=== PATIENT | male | born 1955 | race Caucasian/White ===

== ENCOUNTER 2018-07-19 12:58 | Inpatient (IN) ==
[2018-07-19] MEDS ORDERED: Morphine Inj 4 MG, Morphine Inj 2 MG IV.PUSH ONE ×4 (13:55→17:13)
[2018-07-19] MEDS ORDERED: Sod Chloride 0.9% Inj 1,000 ML IV.SIG SCH (14:00)
--- NOTE | 2018-07-19 14:15 | ED ---
HPI General Chief complaint: Abdominal Pain Stated complaint: abd pain Time Seen by Provider: 07/19/18 13:48 History of Present Illness HPI narrative: Patient is a 62-year-old male with a history of umbilical hernia presents emergency department for evaluation of generalized abdominal pain for the past 3 days. Patient states it started just after Thanksgiving dinner. States he thinks that his umbilical hernia popped. States he has had pain all over and is been gradually worsening in his abdomen since then. He does have history of COPD and smoking as well as history of spinal fusion and a spinal cord stimulator. States the pain is fairly severe, mostly around his bellybutton with some in the right upper quadrant, duration as above, contacts as above. Related Data Home Medications Medication Instructions Recorded Confirmed gabapentin 600 mg PO DAILY 07/19/18 07/19/18 morphine 15 mg PO Q12H 07/19/18 07/19/18 oxycodone-acetaminophen 1 tab PO Q4-6H PRN 07/19/18 07/19/18 pravastatin 20 mg PO DAILY 07/19/18 07/19/18 Allergies Allergy/AdvReac Type Severity Reaction Status Date / Time No Known Allergies Allergy Verified 07/19/18 13:54 Review of Systems ROS: all other systems reviewed are negative [facility] Medical History Medical History COPD (chronic obstructive pulmonary disease) (Acute) Chronic pain (Acute) Fusion of lumbar spine (Acute) Hypercholesteremia (Acute) Social History Social History Substance History: No History of Abuse Smoking Status: Current every day smoker Tobacco Type: Cigarettes How Often Do You Have a Drink Containing Alcohol: Never Recent Travel in [facility] within the Last 8 Weeks: No Recent Out of Country Travel within the Last 8 Weeks: No Exam Narrative Exam Narrative: GENERAL: Well-developed well-nourished obese male appears uncomfortable. SKIN: Focused skin assessment warm/dry. HEAD: Atraumatic. Normocephalic. EYES: Pupils equal and round. No scleral icterus. No injection or drainage. ENT: No nasal bleeding or discharge. Mucous membranes pink and moist. NECK: Trachea midline. No JVD. CARDIOVASCULAR: Regular rate and rhythm. No murmur appreciated. RESPIRATORY: No accessory muscle use. Clear to auscultation. Breath sounds equal bilaterally. GASTROINTESTINAL: Abdomen distended, there are some bowel sounds, is tender throughout the abdomen, there is some peritonitis as well as evidenced by percussion. It seems to be relatively well localized to the right upper quadrant. MUSCULOSKELETAL: No obvious deformities. No clubbing. No cyanosis. No edema. NEUROLOGICAL: Awake and alert. No obvious cranial nerve deficits. Motor grossly within normal limits. Normal speech. PSYCHIATRIC: Appropriate mood and affect; insight and judgment normal. Course Initial Documented Vital Signs Temperature 100.2 F H 07/19/18 13:07 Pulse Rate 118 H 07/19/18 13:07 Respiratory Rate 20 07/19/18 13:07 Blood Pressure 146/67 H 07/19/18 13:07 Pulse Oximetry 89 L 07/19/18 13:07 Last Documented Vital Signs Temperature 100.2 F H 07/19/18 13:07 Pulse Rate 98 H 07/19/18 15:21 Respiratory Rate 16 07/19/18 15:21 Blood Pressure 113/68 07/19/18 15:21 Pulse Oximetry 92 L 07/19/18 15:21 Medical Decision Making MDM Narrative Medical decision making narrative: Patient room to the emergency department, distended tender abdomen, he does have a slight temperature to 100.2, initially tachycardic in the 110's. His mucous membranes appear dry as well, is given 2 L of fluid, lactic acid was negative, white blood cell count elevated to 19,000 with left shift and bandemia of 11%. Patient was taken to CAT scanner which shows what appears to be acute cholecystitis with a 2.5 cm gallbladder neck stone, there is also some distended small bowel loops which either represents adynamic ileus or possibly a small bowel obstruction. Given the cholecystitis would favor an ileus. Still with his distention I think NG decompression would make him feel much more comfortable. It has been ordered. Patient was discussed with Dr. Castro who will see the patient today but probably slight the patient for cholecystectomy on Saturday or Saturday. We have discussed adding Zosyn. Patient will be discussed with Dr. Alvarado for admission. Medical Screen Exam Complete: Yes Emergency Medical Condition: Yes Lab Data Result diagrams: 07/19/18 14:10 07/19/18 14:10 Lab Results 07/19/18 07/19/18 07/19/18 Range/Units 14:10 14:10 14:10 WBC 19.0 H (4.0-11.0) th/mm3 RBC 4.75 (4.50-5.90) mil/mm3 Hgb 16.2 (13.0-17.0) gm/dL Hct 43.6 (39.0-51.0) % MCV 91.9 (80.0-100.0) fL MCH 34.1 H (27.0-34.0) pg MCHC 37.2 H (32.0-36.0) % RDW 12.7 (11.6-17.2) % Plt Count 332 (150-450) th/mm3 MPV 7.8 (7.0-11.0) fL Prelim Diff (Auto) Slide review pending Neut % (Auto) 91.3 H (16.0-70.0) % Lymph % (Auto) 3.2 L (9.0-44.0) % [place] % (Auto) 5.4 (0.0-8.0) % Eos % (Auto) 0.0 (0.0-4.0) % Baso % (Auto) 0.1 (0.0-2.0) % Neut # (Auto) 17.3 H (1.8-7.7) th/mm3 Lymph # (Auto) 0.6 L (1.0-4.8) th/mm3 [place] # (Auto) 1.0 H (0.0-0.9) th/mm3 Eos # (Auto) 0.0 (0.0-0.4) th/mm3 Baso # (Auto) 0.0 (0.0-0.2) th/mm3 WBC Differential Manual diff final Seg Neuts % (Manual) 81 H (16-70) % Band Neuts % (Manual) 11 H (0-6) % Lymphocytes % (Manual) 3 L (9-44) % Monocytes % (Manual) 5 (0-8) % Abs Neuts (Manual) 17.5 H (1.8-7.7) th/mm3 Differential Comment . Platelet Estimate Normal (Normal) Platelet Morphology (Normal) PT 11.3 (9.8-11.6) sec INR 1.1 Ratio APTT 29.6 (23.4-31.7) sec Sodium 134 L (136-145) meq/L Potassium 3.5 (3.5-5.1) meq/L Chloride 101 (98-107) meq/L Carbon Dioxide 23.4 (21.0-32.0) meq/L Anion Gap 10 (5-15) meq/L BUN 12 (7-18) mg/dL Creatinine 0.95 (0.60-1.30) mg/dL Estimated GFR 81 L (>89) mL/min Random Glucose 166 H (74-106) mg/dL Lactic Acid (0.4-2.0) mmol/L Calcium 9.1 (8.5-10.1) mg/dL Magnesium 1.8 (1.5-2.5) mg/dL Total Bilirubin 0.8 (0.2-1.0) mg/dL AST 25 (15-37) U/L ALT 31 (12-78) U/L Alkaline Phosphatase 162 H (45-117) U/L Total Protein 8.3 H (6.4-8.2) g/dL Albumin 3.5 (3.4-5.0) g/dL Lipase 49 L (73-393) U/L 11/24/18 Range/Units 14:10 WBC (4.0-11.0) th/mm3 RBC (4.50-5.90) mil/mm3 Hgb (13.0-17.0) gm/dL Hct (39.0-51.0) % MCV (80.0-100.0) fL MCH (27.0-34.0) pg MCHC (32.0-36.0) % RDW (11.6-17.2) % Plt Count (150-450) th/mm3 MPV (7.0-11.0) fL Prelim Diff (Auto) Neut % (Auto) (16.0-70.0) % Lymph % (Auto) (9.0-44.0) % [place] % (Auto) (0.0-8.0) % Eos % (Auto) (0.0-4.0) % Baso % (Auto) (0.0-2.0) % Neut # (Auto) (1.8-7.7) th/mm3 Lymph # (Auto) (1.0-4.8) th/mm3 [place] # (Auto) (0.0-0.9) th/mm3 Eos # (Auto) (0.0-0.4) th/mm3 Baso # (Auto) (0.0-0.2) th/mm3 WBC Differential Seg Neuts % (Manual) (16-70) % Band Neuts % (Manual) (0-6) % Lymphocytes % (Manual) (9-44) % Monocytes % (Manual) (0-8) % Abs Neuts (Manual) (1.8-7.7) th/mm3 Differential Comment Platelet Estimate (Normal) Platelet Morphology (Normal) PT (9.8-11.6) sec INR Ratio APTT (23.4-31.7) sec Sodium (136-145) meq/L Potassium (3.5-5.1) meq/L Chloride (98-107) meq/L Carbon Dioxide (21.0-32.0) meq/L Anion Gap (5-15) meq/L BUN (7-18) mg/dL Creatinine (0.60-1.30) mg/dL Estimated GFR (>89) mL/min Random Glucose (74-106) mg/dL Lactic Acid 2.0 (0.4-2.0) mmol/L Calcium (8.5-10.1) mg/dL Magnesium (1.5-2.5) mg/dL Total Bilirubin (0.2-1.0) mg/dL AST (15-37) U/L ALT (12-78) U/L Alkaline Phosphatase (45-117) U/L Total Protein (6.4-8.2) g/dL Albumin (3.4-5.0) g/dL Lipase (73-393) U/L Imaging Data Radiologist's impression: Abdomen/Pelvis CT 07/19/18 13:54 CONCLUSION: 1. Findings most consistent with cholelithiasis and acute cholecystitis. 2. 2.1 cm indeterminate density right adrenal mass. Adrenal mass protocol CT or MRI examination may be performed on an outpatient basis for further evaluation. 3. Moderate sigmoid diverticulosis without evidence for diverticulitis. 4. Marginal fluid filled loops of small bowel in the left upper abdomen which may reflect developing adynamic ileus. 5. Additional ancillary findings, as above. Discharge Plan Physicians Team ED Provider: Arnav Dillon Primary Care Provider: Primary Care Yarely Brito Rxs /Orders / Referrals /Forms Prescriptions: No Action gabapentin 600 mg Tablet 600 mg PO DAILY RF: 0 oxycodone-acetaminophen 10-325 mg Tablet 1 tab PO Q4-6H PRN (Reason: Pain) RF: 0 pravastatin 20 mg Tablet 20 mg PO DAILY RF: 0 morphine 15 mg Tablet,Oral Only,Extnd Release 15 mg PO Q12H RF: 0 Status ED Status: Admitted Patient
[2018-07-19 15:15] LABS: Baso % (Auto) 0.1 % (0.0-2.0); Hematocrit 43.6 % (39.0-51.0); Hemoglobin 16.2 gm/dL (13.0-17.0); Lymph # (Auto) 0.6 th/mm3 (1.0-4.8); Lymph % (Auto) 3.2 % (9.0-44.0); Mean Corpuscular Hemoglobin 34.1 pg (27.0-34.0); Mean Corpuscular Volume 91.9 fL (80.0-100.0); Mean Platelet Volume 7.8 fL (7.0-11.0); Mono % (Auto) 5.4 % (0.0-8.0); Neut # (Auto) 17.3 th/mm3 (1.8-7.7); Neut % (Auto) 91.3 % (16.0-70.0); Platelet Count 332 th/mm3 (150-450); Red Blood Count 4.75 mil/mm3 (4.50-5.90); Red Cell Distribution Width 12.7 % (11.6-17.2)
[2018-07-19 15:25] LABS: Mean Corpuscular HGB Conc 37.2 % (32.0-36.0)
[2018-07-19 15:26] LABS: Activated Partial Thrombo Time 29.6 sec (23.4-31.7); INR 1.1 Ratio; Prothrombin Time 11.3 sec (9.8-11.6)
[2018-07-19 15:38] LABS: Alanine Aminotransferase 31 U/L (12-78); Albumin 3.5 g/dL (3.4-5.0); Anion Gap 10 meq/L (5-15); Aspartate Aminotransferase 25 U/L (15-37); Blood Urea Nitrogen 12 mg/dL (7-18); Calcium 9.1 mg/dL (8.5-10.1); Carbon Dioxide 23.4 meq/L (21.0-32.0); Chloride 101 meq/L (98-107); Glomerular Filtration Rate 81 mL/min (>89); Glucose,Random 166 mg/dL (74-106); Lipase 49 U/L (73-393); Magnesium 1.8 mg/dL (1.5-2.5); Potassium 3.5 meq/L (3.5-5.1); Sodium 134 meq/L (136-145)
[2018-07-19 15:41] LABS: Alkaline Phosphatase 162 U/L (45-117); Total Protein 8.3 g/dL (6.4-8.2)
[2018-07-19 16:06] LABS: Lymphocytes 3 % (9-44); Monocytes 5 % (0-8)
[2018-07-19 16:07] LABS: Platelet Estimate Normal (Normal)
--- NOTE | 2018-07-19 16:26 | CT ---
EXAM DATE: 07/19/2018 4:17 PM EST AGE/SEX: 62 years / Male INDICATIONS: Abdominal pain with umbilical hernia. CLINICAL DATA: This is the patient's initial encounter. Patient reports that signs and symptoms have been present for 4 - 6 days and indicates a pain score of 6/10. MEDICAL/SURGICAL HISTORY: . Umbilical hernia. . Lumbar fusion ORAL CONTRAST: No oral contrast ingested. RADIATION DOSE: 16.25 CTDI (mGy) COMPARISON: No prior exams available for comparison. TECHNIQUE: Multiple contiguous axial images were obtained through the abdomen and pelvis following b olus infusion of 96 ml Omnipaque 350 (iohexol) nonionic water-soluble contrast as a single exam dos e. No oral contrast ingested. Using automated exposure control and adjustment of the mA and/or kV ac cording to patient size, radiation dose was kept as low as reasonably achievable to obtain optimal di agnostic quality images. DICOM format image data is available electronically for review and comparis on. FINDINGS: LOWER LUNGS: Bilateral lower lobe airspace consolidation. LIVER: The liver has a homogeneous density without space-occupying lesion. There is no dilation of t he biliary tree. Gallbladder is distended with moderate surrounding stranding and a 2.5 cm stone near the gallbladder neck. There is very trace perihepatic fluid. SPLEEN: Homogeneous density without enlargement. PANCREAS: Unremarkable without mass or calcification. KIDNEYS: Kidneys demonstrate symmetrical enhancement and are symmetrical in size without evidence fo r radiopaque renal calculi or hydronephrosis. ADRENAL GLANDS: 2.1 cm indeterminate density right adrenal mass. AORTA: Jennifer-aneurysmal. BOWEL/MESENTERY: Moderate sigmoid diverticulosis without definitive evidence for diverticulitis. Mar ginal fluid filled loops of small bowel in the left upper abdomen. Moderate stool in the proximal col on. No focal drainable fluid collections. No free air or pneumatosis. ABDOMINAL WALL: Fat-containing periumbilical anterior abdominal wall hernia. RETROPERITONEUM: No evidence of adenopathy in the retrocrural, para-aortic, or deep pelvic regions. BLADDER: Contours are smooth. REPRODUCTIVE: No abnormal masses or calcifications seen. BONY STRUCTURES: Degenerative spondylosis of the lower lumbar spine with posterior transpedicular ro d and screw fixation at L4-S1 and spinal stimulator in place. CONCLUSION: 1. Findings most consistent with cholelithiasis and acute cholecystitis. 2. 2.1 cm indeterminate density right adrenal mass. Adrenal mass protocol CT or MRI examination may be performed on an outpatient basis for further evaluation. 3. Moderate sigmoid diverticulosis without evidence for diverticulitis. 4. Marginal fluid filled loops of small bowel in the left upper abdomen which may reflect developing adynamic ileus. 5. Additional ancillary findings, as above. Electronically signed by: Brad Norton MD 07/19/2018 4:25 PM EST
[2018-07-19] MEDS ORDERED: Piperacil/Tazo 4.5 GM Premix 4.5 GM/100 ML BAG IV.SIG ONE (16:43)
[2018-07-19] MEDS ORDERED: Acetaminophen 325 MG Tablet PO PRN (17:00)
[2018-07-19] MEDS ORDERED: Morphine Inj 4 MG/ML Vial IV.PUSH PRN ×2 (17:01)
--- NOTE | 2018-07-19 17:05 | XR ---
EXAM DATE: 07/19/2018 4:40 PM EST AGE/SEX: 62 years / Male INDICATIONS: Abdominal umbilical hernia. CLINICAL DATA: This is the patient's initial encounter. Patient reports that signs and symptoms have been present for 1 day and indicates a pain score of 0/10. MEDICAL/SURGICAL HISTORY: . Umbilical hernia. Fusion, lumbar. COMPARISON: No prior exams available for comparison. FINDINGS: A single AP view of the chest demonstrates the lungs to be symmetrically aerated without evidence of mass, infiltrate or effusion. The cardiomediastinal contours are unremarkable. Osseous structures a re intact. CONCLUSION: No acute cardiopulmonary disease demonstrated. Electronically signed by: Rito Ferreira MD 07/19/2018 5:04 PM EST
[2018-07-19] MEDS: Sod Chloride 0.9% Inj 1,000 ML IV.CONT SCH (18:04)
--- NOTE | 2018-07-19 18:04 | P.HPIM ---
History of Present Illness Primary Care Physician: No Primary Care Physician History of Present Illness: Mr. Brown is a 62-year-old male. He says 2 nights ago (Thanksgiving dinner) he had an acute onset of right upper quadrant pain. At first the pain was mild in the background but today when he awoke the pain was acute and severe so he had a friend bring him to the emergency department. Imaging shows evidence of cholecystitis. With tachycardia and leukocytosis and cholecystitis the patient meets criteria for sepsis at time of admit. Additionally she has an ileus versus SBO based on imaging. NG tube has been placed prior to my visit with the patient and patient is tolerating this. If this is an ileus etiology could be related to his cholecystitis. No other complaints except abdominal pain at this time. Pain is improved with current pain treatments. Inpatient Certification: I certify that the inpatient services were ordered in accordance with Medicare regulations governing the order. This includes certification that hospital inpatient services are reasonable and necessary and in the case of services not specified as inpatient-only under 42 CFR 419.22(n), that they are appropriately provided as inpatient services in accordance to with the 2-midnight benchmark under 43 CFR 412.3(e) Estimated Total Length of Stay (Days): 5 Plans for Post Hospital Care: SNF Review of Systems Constitutional: No fevers, no chills no night sweats, no fatigue, no weakness Eyes: No eye pain, no blurry vision, no loss of vision ENT: No sore throat, no ear pain, no rhinorrhea Cardiovascular: No chest pain, tachycardia, no palpitations, no syncope Respiratory: No wheezing, no cough, no shortness of breath Gastrointestinal: abdominal pain, no black tarry stools, no bright red blood per rectum, no vomiting, no diarrhea Musculoskeletal: No joint pain, no muscle cramps, no stiffness Integumentary: No rash, no ulcers, no drainage Neurologic: No sensory loss, no loss of motor function, no dizziness Psychiatric: No behavioral changes, no hallucinations, no suicidal ideations PMFSH - History History Provided By: Patient - Medical History Medical History: Medical History (Last Updated 07/19/18 @ 14:32 by Candi Johnson RN) COPD (chronic obstructive pulmonary disease) Chronic pain Fusion of lumbar spine Hypercholesteremia - Family History Family History: Family History (Last Updated 07/19/18 @ 18:01 by Mj Alvarado MD) Other Cholecystitis Cholelithiasis Osteoarthritis - Tobacco History Tobacco Use In Past 30 Days: Yes Smoking Status: Current every day smoker Tobacco Type: Cigarettes - Alcohol History How Often Do You Have a Drink Containing Alcohol: Never - Substance Use History Substance History: No History of Abuse - Travel History Recent Travel in the [place] Within the Last 8 Weeks: No Recent Travel Out of the Country Within the Last 8 Weeks: No - Immunization History Tetanus Immunization: <5 Years Medications and Allergies Active Medications: Active Medications Acetaminophen (Tylenol) 650 mg PO Q4H PRN PRN Reason: Temp > 100.4 Al Hydroxide/Mg Hydroxide (Milk Of Magnaiden Liq) 30 ml PO Q12H PRN PRN Reason: Mild Constipation Sodium Chloride (Ns Inj) 1,000 mls @ 75 mls/hr IV.CONT .[id number] DENILSON Piperacillin/Tazobactam/Dextrose (Zosyn 3.375 Gm Premix) 50 mls @ 100 mls/hr IV.SIG Q8H DENILSON Morphine Sulfate (Morphine Inj) 4 mg IV.PUSH Q4H PRN PRN Reason: Pain 3 to 6 Morphine Sulfate (Morphine Inj) 6 mg IV.PUSH Q4H PRN PRN Reason: Pain 7 to 10 Ondansetron HCl (Zofran Inj) 4 mg IV.PUSH Q6H PRN PRN Reason: NAUSEA OR VOMITING Sodium Chloride (Ns Flush) 2 ml IV.FLUSH PRN PRN PRN Reason: FLUSH AFTER USING IV ACCESS Allergies Allergy/AdvReac Type Severity Reaction Status Date / Time No Known Allergies Allergy Verified 07/19/18 13:54 Home Medications Medication Instructions Recorded Confirmed Type gabapentin 600 mg PO DAILY 07/19/18 07/19/18 History morphine 15 mg PO Q12H 07/19/18 07/19/18 History oxycodone-acetaminophen 1 tab PO Q4-6H PRN 07/19/18 07/19/18 History pravastatin 20 mg PO DAILY 07/19/18 07/19/18 History Exam Vital signs: Vital Signs 07/19/18 13:07 07/19/18 13:55 07/19/18 15:21 Temperature 100.2 F H Pulse Rate 118 H 103 H 98 H Respiratory Rate 20 20 16 Blood Pressure 146/67 H 113/85 113/68 Pulse Oximetry 89 L 92 L 92 L 07/19/18 16:45 Temperature Pulse Rate 104 H Respiratory Rate 22 Blood Pressure 110/65 Pulse Oximetry 91 L Intake & Output 07/18/18 07/19/18 07/19/18 18:59 06:59 18:59 Intake Total 1000 / 1000 Balance 1000 / 1000 Weight 89.811 kg Intake: IV 1000 / 1000 NS Inj 1,000 ML @ 1000 mls/hr 1000 / 1000 IV.SIG BOLUS DENILSON Rx#:[id number] Narrative: GENERAL: NAD, A&Ox3 HEAD: Normocephalic. NECK: Supple, trachea midline. No lymphadenopathy. EYES: No scleral icterus. No injection or drainage. CARDIOVASCULAR: Regular rate and rhythm without murmurs, gallops, or rubs. RESPIRATORY: Breath sounds equal bilaterally. No accessory muscle use. GASTROINTESTINAL: Abdominal tenderness and distention. No significant guarding with palpation. MUSCULOSKELETAL: No cyanosis, or edema. SKIN: Warm and dry. NEURO: No focal neurological deficits. Results - Labs CBC & Chem 7: 07/19/18 14:10 07/19/18 14:10 Labs: Short CBC 07/19/18 Range/Units 14:10 WBC 19.0 H (4.0-11.0) th/mm3 Hgb 16.2 (13.0-17.0) gm/dL Hct 43.6 (39.0-51.0) % Plt Count 332 (150-450) th/mm3 BMP 07/19/18 14:10 Sodium 134 L Potassium 3.5 Chloride 101 Carbon Dioxide 23.4 BUN 12 Creatinine 0.95 Calcium 9.1 Liver Function 07/19/18 Range/Units 14:10 Total Bilirubin 0.8 (0.2-1.0) mg/dL AST 25 (15-37) U/L ALT 31 (12-78) U/L Alkaline Phosphatase 162 H (45-117) U/L Albumin 3.5 (3.4-5.0) g/dL - Imaging Impressions Abdomen/Pelvis CT 07/19/18 13:54 CONCLUSION: 1. Findings most consistent with cholelithiasis and acute cholecystitis. 2. 2.1 cm indeterminate density right adrenal mass. Adrenal mass protocol CT or MRI examination may be performed on an outpatient basis for further evaluation. 3. Moderate sigmoid diverticulosis without evidence for diverticulitis. 4. Marginal fluid filled loops of small bowel in the left upper abdomen which may reflect developing adynamic ileus. 5. Additional ancillary findings, as above. Chest X-Ray 07/19/18 16:12 CONCLUSION: No acute cardiopulmonary disease demonstrated. Caprini VTE Risk Assessment Caprini VTE Risk Assessment: No/Low Risk (score <= 1) Caprini Risk Assessment Model: Point Value = 1 Point Value = 2 Point Value = 3 Point Value = 5 Age 41-60 Minor surgery BMI > 25 kg/m2 Swollen legs Varicose veins or History of unexplained or recurrent spontaneous Oral contraceptives or hormone replacement Sepsis (< 1 month) Serious lung disease, including pneumonia (< 1 month) Abnormal pulmonary function Acute myocardial infarction Congestive heart failure (< 1 month) History of inflammatory bowel disease Medical patient at bed rest Age 61-74 Arthroscopic surgery Major open surgery (> 45 min) Laparoscopic surgery (> 45 min) Malignancy Confined to bed (> 72 hours) Immobilizing plaster cast Central venous access Age >= 75 History of VTE Family history of VTE Factor V Leiden Prothrombin [id number] Lupus anticoagulant Anticardiolipin antibodies Elevated serum homocysteine Heparin-induced thrombocytopenia Other congenital or acquired thrombophilia Stroke (< 1 month) Elective arthroplasty Hip, pelvis, or leg fracture Acute spinal cord injury (< 1 month) Prophylaxis Regimen: Total Risk Factor Score Risk Level Prophylaxis Regimen 0-1 Low Early ambulation 2 Moderate Order ONE of the following: *Sequential Compression Device (SCD) *Heparin 5000 units SQ BID 3-4 Higher Order ONE of the following medications: *Heparin 5000 units SQ TID *Enoxaparin/Lovenox 40 mg SQ daily (WT < 150 kg, CrCl > 30 mL/min) *Enoxaparin/Lovenox 30 mg SQ daily (WT < 150 kg, CrCl > 10-29 mL/min) *Enoxaparin/Lovenox 30 mg SQ BID (WT < 150 kg, CrCl > 30 mL/min) AND/OR *Sequential Compression Device (SCD) 5 or more Highest Order ONE of the following medications: *Heparin 5000 units SQ TID (Preferred with Epidurals) *Enoxaparin/Lovenox 40 mg SQ daily (WT < 150 kg, CrCl > 30 mL/min) *Enoxaparin/Lovenox 30 mg SQ daily (WT < 150 kg, CrCl > 10-29 mL/min) *Enoxaparin/Lovenox 30 mg SQ BID (WT < 150 kg, CrCl > 30 mL/min) AND *Sequential Compression Device (SCD) Assessment and Plan - Plan 62-year-old male admitted secondary to acute cholecystitis with sepsis and ileus Sepsis Acute cholecystitis Ileus N.p.o. IV hydration General surgery consult IV morphine for pain Zosyn Follow clinically for improvement Follow on telemetry Hyperlipidemia Hold chronic treatments given n.p.o. status Follow as an outpatient Chronic back pain N.p.o. for now Continue IV pain treatments COPD No exacerbation Monitor clinically DVT prophylaxis SCDs
--- NOTE | 2018-07-19 18:51 | XR ---
EXAM DATE: 07/19/2018 6:46 PM EST AGE/SEX: 62 years / Male INDICATIONS: NG tube placement. CLINICAL DATA: This is the patient's subsequent encounter. Patient reports that signs and symptoms h ave been present for 1 day and indicates a pain score of 4/10. MEDICAL/SURGICAL HISTORY: . Umbilical hernia. Fusion, lumbar. Stimulator. COMPARISON: No prior exams available for comparison. FINDINGS: A single erect view of the abdomen demonstrates the lower lungs to be clear. No evidence of free intr aperitoneal gas.The visualized bowel loops are unremarkable. Nasogastric tube tip is pointing laterally in the upper stomach. The sidehole is just below the GE ju nction. CONCLUSION: Nasogastric tube tip the upper stomach. Electronically signed by: Rito Ferreira MD 07/19/2018 6:50 PM EST
--- NOTE | 2018-07-19 18:57 | P.CON ---
History of Present Illness Consult date: 07/19/18 Reason for Consult: Acute cholecystitis Primary Care Provider: No Primary Care Physician History of Present Illness: Patient is a 62-year-old male who has approximately a 2-day history of right upper quadrant pain. The pain is become increasingly severe and reports nausea and some emesis today. CT demonstrates a distended gallbladder with a stone in the neck of the gallbladder with a thickened gallbladder wall there is a question of localized ileus as well. Patient has elevated WBCs with left shift and elevated lactate. Liver function tests are within normal limits except for slightly elevated alkaline phosphatase at 162. PMFSH - History History Provided By: Patient - Medical History Medical History: Medical History (Last Updated 07/19/18 @ 14:32 by Candi Johnson RN) COPD (chronic obstructive pulmonary disease) Chronic pain Fusion of lumbar spine Hypercholesteremia - Family History Family History: Family History (Last Updated 07/19/18 @ 18:01 by Mj Alvarado MD) Other Cholecystitis Cholelithiasis Osteoarthritis - Tobacco History Tobacco Use In Past 30 Days: Yes Smoking Status: Current every day smoker Tobacco Type: Cigarettes - Alcohol History How Often Do You Have a Drink Containing Alcohol: Never - Substance Use History Substance History: No History of Abuse - Travel History Recent Travel in the [place] Within the Last 8 Weeks: No Recent Travel Out of the Country Within the Last 8 Weeks: No - Immunization History Tetanus Immunization: <5 Years Medications and Allergies Active Medications: Active Medications Acetaminophen (Tylenol) 650 mg PO Q4H PRN PRN Reason: Temp > 100.4 Al Hydroxide/Mg Hydroxide (Milk Of Magnesia Liq) 30 ml PO Q12H PRN PRN Reason: Mild Constipation Sodium Chloride (Ns Inj) 1,000 mls @ 75 mls/hr IV.CONT .[id number] DENILSON Last Admin: 07/19/18 18:04 Dose: 75 mls/hr Piperacillin/Tazobactam/Dextrose (Zosyn 3.375 Gm Premix) 50 mls @ 100 mls/hr IV.SIG Q8H DENILSON Morphine Sulfate (Morphine Inj) 4 mg IV.PUSH Q4H PRN PRN Reason: Pain 3 to 6 Morphine Sulfate (Morphine Inj) 6 mg IV.PUSH Q4H PRN PRN Reason: Pain 7 to 10 Ondansetron HCl (Zofran Inj) 4 mg IV.PUSH Q6H PRN PRN Reason: NAUSEA OR VOMITING Sodium Chloride (Ns Flush) 2 ml IV.FLUSH PRN PRN PRN Reason: FLUSH AFTER USING IV ACCESS Allergies Allergy/AdvReac Type Severity Reaction Status Date / Time No Known Allergies Allergy Verified 07/19/18 13:54 Home Medications Medication Instructions Recorded Confirmed Type gabapentin 600 mg PO DAILY 07/19/18 07/19/18 History morphine 15 mg PO Q12H 07/19/18 07/19/18 History oxycodone-acetaminophen 1 tab PO Q4-6H PRN 07/19/18 07/19/18 History pravastatin 20 mg PO DAILY 07/19/18 07/19/18 History Physical Exam Vital signs: Vital Signs 07/19/18 13:07 07/19/18 13:55 07/19/18 15:21 Temperature 100.2 F H Pulse Rate 118 H 103 H 98 H Respiratory Rate 20 20 16 Blood Pressure 146/67 H 113/85 113/68 Pulse Oximetry 89 L 92 L 92 L 07/19/18 16:45 Temperature Pulse Rate 104 H Respiratory Rate 22 Blood Pressure 110/65 Pulse Oximetry 91 L Intake & Output 07/18/18 07/19/18 07/19/18 18:59 06:59 18:59 Intake Total 1100 / 1100 Balance 1100 / 1100 Weight 89.811 kg Intake: IV 1100 / 1100 Zosyn 4.5 GM Premix 4.5 gm In 100 / 100 100 ml @ 200 mls/hr IV.SIG ONCE ONE Rx#:[id number] NS Inj 1,000 ML @ 1000 mls/hr 1000 / 1000 IV.SIG BOLUS DENILSON Rx#:[id number] - Constitutional moderate distress - Routine HEENT Exam Head: Present: normocephalic - Routine Neck Exam Present: supple - Routine Respiratory Exam Present: decreased breath sounds - Routine Cardiovascular Exam Present: RRR - Routine Abdominal Exam Present: soft, tenderness (Right upper quadrant and epigastrium), guarding - Detailed Neurological Exam: Coma Scale Verbal Response: Oriented Motor Response: Obey commands - Routine Psychiatric Exam Present: normal affect, good insight Results - Labs CBC & Chem 7: 07/19/18 14:10 07/19/18 14:10 Labs: Laboratory Results - last 24 hr 07/19/18 07/19/18 07/19/18 14:10 14:10 14:10 WBC 19.0 H RBC 4.75 Hgb 16.2 Hct 43.6 MCV 91.9 MCH 34.1 H MCHC 37.2 H RDW 12.7 Plt Count 332 MPV 7.8 Prelim Diff (Auto) Slide review pending Neut % (Auto) 91.3 H Lymph % (Auto) 3.2 L [place] % (Auto) 5.4 Eos % (Auto) 0.0 Baso % (Auto) 0.1 Neut # (Auto) 17.3 H Lymph # (Auto) 0.6 L [place] # (Auto) 1.0 H Eos # (Auto) 0.0 Baso # (Auto) 0.0 WBC Differential Manual diff final Seg Neuts % (Manual) 81 H Band Neuts % (Manual) 11 H Lymphocytes % (Manual) 3 L Monocytes % (Manual) 5 Abs Neuts (Manual) 17.5 H Differential Comment . Platelet Estimate Normal Platelet Morphology PT 11.3 INR 1.1 APTT 29.6 Sodium 134 L Potassium 3.5 Chloride 101 Carbon Dioxide 23.4 Anion Gap 10 BUN 12 Creatinine 0.95 Estimated GFR 81 L Random Glucose 166 H Lactic Acid Calcium 9.1 Magnesium 1.8 Total Bilirubin 0.8 AST 25 ALT 31 Alkaline Phosphatase 162 H Total Protein 8.3 H Albumin 3.5 Lipase 49 L 07/19/18 14:10 WBC RBC Hgb Hct MCV MCH MCHC RDW Plt Count MPV Prelim Diff (Auto) Neut % (Auto) Lymph % (Auto) [place] % (Auto) Eos % (Auto) Baso % (Auto) Neut # (Auto) Lymph # (Auto) [place] # (Auto) Eos # (Auto) Baso # (Auto) WBC Differential Seg Neuts % (Manual) Band Neuts % (Manual) Lymphocytes % (Manual) Monocytes % (Manual) Abs Neuts (Manual) Differential Comment Platelet Estimate Platelet Morphology PT INR APTT Sodium Potassium Chloride Carbon Dioxide Anion Gap BUN Creatinine Estimated GFR Random Glucose Lactic Acid 2.0 Calcium Magnesium Total Bilirubin AST ALT Alkaline Phosphatase Total Protein Albumin Lipase - Imaging Impressions Abdomen/Pelvis CT 07/19/18 13:54 CONCLUSION: 1. Findings most consistent with cholelithiasis and acute cholecystitis. 2. 2.1 cm indeterminate density right adrenal mass. Adrenal mass protocol CT or MRI examination may be performed on an outpatient basis for further evaluation. 3. Moderate sigmoid diverticulosis without evidence for diverticulitis. 4. Marginal fluid filled loops of small bowel in the left upper abdomen which may reflect developing adynamic ileus. 5. Additional ancillary findings, as above. Chest X-Ray 07/19/18 16:12 CONCLUSION: No acute cardiopulmonary disease demonstrated. Assessment and Plan - Assessment (1) Acute cholecystitis due to biliary calculus Code(s): K80.00 - Calculus of gallbladder with acute cholecystitis without obstruction Status: Acute Plan: Patient needs resuscitation and antibiotics. He also needs optimization of his pulmonary status as he is a smoker and has COPD. Also he has chronic narcotic use for chronic back pain. He will be extremely problematic in terms of managing his postoperative pain. 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 I have discussed risks of the procedure with him preliminarily including but not limited to: bleeding, infection, increased risk for pneumonia, bile duct injury , bowel injury, possible need for ERCP. I have also discussed with him that I will primarily repair his umbilical hernia but that it has a high failure rate due to his other comorbid conditions. I will not place mesh when it is repaired at the time of gallbladder surgery. I will attempt to proceed with surgery on Saturday or Saturday morning. This is in the next 48-72 hours. - Plan Discussed Condition With: Patient ER physician Dr. Dillon - Attending Attestation I attest that I had a [id number] encounter with the patient on the same day, and personally performed and documented my assessment and findings in the medical record. The following services were provided during this hospital visit: Chart data review, vital sign assessments/reviewing monitor data Review of consultation notes if present Medication orders/review and/or management Ordering and/or reviewing lab tests Ordering and/or interpreting/reviewing x-rays and/or diagnostic studies Care of the patient and discussion of the patient with the care team Documentation time To help prompt me to consider important information that might be impacting today's encounter and assessment, Information from prior notes written by myself or my colleagues may have been "brought forward/copy and pasted" into today's note.
[2018-07-20] MEDS: Morphine Inj 4 MG/ML Vial IV.PUSH PRN ×7 (00:15→21:53)
[2018-07-20] MEDS: Piperacil/Tazo 3.375 GM Premix 50 ML IV.SIG SCH ×3 (00:18→16:15)
[2018-07-20] MEDS ORDERED: Piperacil/Tazo 3.375 GM Premix 50 ML IV.SIG SCH (01:00)
[2018-07-20] MEDS ORDERED: Morphine Sulfate Inj 2 MG/ML Vial IV.PUSH ONE (01:48)
[2018-07-20 07:01] LABS: Baso % (Auto) 0.2 % (0.0-2.0); Hematocrit 41.3 % (39.0-51.0); Hemoglobin 14.2 gm/dL (13.0-17.0); Lymph # (Auto) 1.4 th/mm3 (1.0-4.8); Mean Corpuscular HGB Conc 34.3 % (32.0-36.0); Mean Corpuscular Hemoglobin 31.9 pg (27.0-34.0); Mean Corpuscular Volume 92.8 fL (80.0-100.0); Mean Platelet Volume 7.5 fL (7.0-11.0); Mono # (Auto) 1.3 th/mm3 (0.0-0.9); Mono % (Auto) 8.6 % (0.0-8.0); Neut # (Auto) 12.4 th/mm3 (1.8-7.7); Neut % (Auto) 82.2 % (16.0-70.0); Platelet Count 314 th/mm3 (150-450); Red Blood Count 4.45 mil/mm3 (4.50-5.90); Red Cell Distribution Width 13.1 % (11.6-17.2)
[2018-07-20 07:26] LABS: Alanine Aminotransferase 25 U/L (12-78); Albumin 2.7 g/dL (3.4-5.0); Alkaline Phosphatase 119 U/L (45-117); Anion Gap 7 meq/L (5-15); Aspartate Aminotransferase 16 U/L (15-37); Blood Urea Nitrogen 17 mg/dL (7-18); Calcium 8.6 mg/dL (8.5-10.1); Chloride 106 meq/L (98-107); Glomerular Filtration Rate Greater Than 89 mL/min (>89); Glucose,Random 118 mg/dL (74-106); Potassium 3.8 meq/L (3.5-5.1); Sodium 140 meq/L (136-145); Total Protein 7.1 g/dL (6.4-8.2)
[2018-07-20] MEDS: Sod Chloride 0.9% Inj 1,000 ML IV.CONT SCH ×2 (08:18→21:51)
--- NOTE | 2018-07-20 11:08 | P.PN ---
Subjective Interval history: Follow-up sepsis/cholecystitis/ileus July 20, 2018-patient seen and examined, currently n.p.o. with increase NG tube output. Abdominal tenderness otherwise no chest pain or shortness of breath. Afebrile. Physical Exam Vital signs: Vital Signs 07/19/18 13:07 07/19/18 13:55 07/19/18 15:21 Temperature 100.2 F H Pulse Rate 118 H 103 H 98 H Respiratory Rate 20 20 16 Blood Pressure 146/67 H 113/85 113/68 Pulse Oximetry 89 L 92 L 92 L 07/19/18 16:45 07/19/18 19:00 07/19/18 19:10 Temperature 98.7 F Pulse Rate 104 H 100 H 100 H Respiratory Rate 22 20 Blood Pressure 110/65 103/36 L Pulse Oximetry 91 L 92 L 07/19/18 20:00 07/19/18 21:00 07/19/18 22:00 Temperature Pulse Rate 94 H 94 H 88 Respiratory Rate Blood Pressure Pulse Oximetry 07/19/18 23:00 07/20/18 00:00 07/20/18 01:00 Temperature 98.4 F Pulse Rate 86 94 H 94 H Respiratory Rate 20 Blood Pressure 130/79 Pulse Oximetry 92 L 07/20/18 01:57 07/20/18 02:00 07/20/18 03:53 Temperature Pulse Rate 81 Respiratory Rate 22 22 Blood Pressure Pulse Oximetry 07/20/18 04:00 07/20/18 08:00 Temperature 98.6 F 98.9 F Pulse Rate 91 H 100 H Respiratory Rate 20 22 Blood Pressure 127/82 143/84 H Pulse Oximetry 94 L 94 L Intake & Output 07/19/18 07/20/18 07/20/18 18:59 06:59 18:59 Intake Total 1100 / 1100 50 / 50 1000 / 1000 Output Total 950 / 950 Balance 1100 / 1100 -900 / -900 1000 / 1000 Weight 89.811 kg 86.7 kg Intake: IV 1100 / 1100 50 / 50 1000 / 1000 NS Inj 1,000 ML @ 75 mls/hr IV. 1000 / 1000 CONT .[id number] DENILSON Rx#:[id number] Zosyn 3.375 GM Premix 50 ML @ 50 / 50 100 mls/hr IV.SIG Q8H DENILSON Rx#: [id number] Zosyn 4.5 GM Premix 4.5 gm In 100 / 100 100 ml @ 200 mls/hr IV.SIG ONCE ONE Rx#:[id number] NS Inj 1,000 ML @ 1000 mls/hr 1000 / 1000 IV.SIG BOLUS DENILSON Rx#:[id number] Oral 0 / 0 Output: Urine 400 / 400 Gastric Drainage 550 / 550 Right Nare Nasogastric Tube 550 / 550 Other: Date of Last Bowel Movement 07/17/18 Narrative: GENERAL: NAD with NGT in place SKIN: Warm and dry. HEAD: Normocephalic. EYES: No scleral icterus. No injection or drainage. NECK: Supple, trachea midline. No JVD or lymphadenopathy. CARDIOVASCULAR: Regular rate and rhythm without murmurs, gallops, or rubs. RESPIRATORY: Breath sounds equal bilaterally. No accessory muscle use. GASTROINTESTINAL: Abdomen soft, mildly tender, nondistended. hypoactive BS. Umbilical hernia MUSCULOSKELETAL: No cyanosis, or edema. BACK: Nontender without obvious deformity. No CVA tenderness. Results - Labs CBC & Chem 7: 07/20/18 06:25 07/20/18 06:25 Laboratory Results - last 24 hr 07/19/18 07/19/18 07/19/18 14:10 14:10 14:10 WBC 19.0 H RBC 4.75 Hgb 16.2 Hct 43.6 MCV 91.9 MCH 34.1 H MCHC 37.2 H RDW 12.7 Plt Count 332 MPV 7.8 Prelim Diff (Auto) Slide review pending Neut % (Auto) 91.3 H Lymph % (Auto) 3.2 L [place] % (Auto) 5.4 Eos % (Auto) 0.0 Baso % (Auto) 0.1 Neut # (Auto) 17.3 H Lymph # (Auto) 0.6 L [place] # (Auto) 1.0 H Eos # (Auto) 0.0 Baso # (Auto) 0.0 WBC Differential Manual diff final Seg Neuts % (Manual) 81 H Band Neuts % (Manual) 11 H Lymphocytes % (Manual) 3 L Monocytes % (Manual) 5 Abs Neuts (Manual) 17.5 H Differential Comment . Platelet Estimate Normal Platelet Morphology PT 11.3 INR 1.1 APTT 29.6 Sodium 134 L Potassium 3.5 Chloride 101 Carbon Dioxide 23.4 Anion Gap 10 BUN 12 Creatinine 0.95 Estimated GFR 81 L Random Glucose 166 H Lactic Acid Calcium 9.1 Magnesium 1.8 Total Bilirubin 0.8 AST 25 ALT 31 Alkaline Phosphatase 162 H Total Protein 8.3 H Albumin 3.5 Lipase 49 L 07/19/18 07/20/18 07/20/18 14:10 06:25 06:25 WBC 15.0 H RBC 4.45 L Hgb 14.2 D Hct 41.3 MCV 92.8 MCH 31.9 MCHC 34.3 RDW 13.1 Plt Count 314 MPV 7.5 Prelim Diff (Auto) Neut % (Auto) 82.2 H Lymph % (Auto) 9.0 [place] % (Auto) 8.6 H Eos % (Auto) 0.0 Baso % (Auto) 0.2 Neut # (Auto) 12.4 H Lymph # (Auto) 1.4 [place] # (Auto) 1.3 H Eos # (Auto) 0.0 Baso # (Auto) 0.0 WBC Differential . Seg Neuts % (Manual) Band Neuts % (Manual) Lymphocytes % (Manual) Monocytes % (Manual) Abs Neuts (Manual) Differential Comment Auto diff final Platelet Estimate Platelet Morphology PT INR APTT Sodium 140 Potassium 3.8 Chloride 106 Carbon Dioxide 27.0 Anion Gap 7 BUN 17 Creatinine 0.79 Estimated GFR Greater than 89 Random Glucose 118 H Lactic Acid 2.0 Calcium 8.6 Magnesium Total Bilirubin 0.4 AST 16 ALT 25 Alkaline Phosphatase 119 H Total Protein 7.1 D Albumin 2.7 L D Lipase - Imaging Impressions Abdomen/Pelvis CT 07/19/18 13:54 CONCLUSION: 1. Findings most consistent with cholelithiasis and acute cholecystitis. 2. 2.1 cm indeterminate density right adrenal mass. Adrenal mass protocol CT or MRI examination may be performed on an outpatient basis for further evaluation. 3. Moderate sigmoid diverticulosis without evidence for diverticulitis. 4. Marginal fluid filled loops of small bowel in the left upper abdomen which may reflect developing adynamic ileus. 5. Additional ancillary findings, as above. Chest X-Ray 07/19/18 16:12 CONCLUSION: No acute cardiopulmonary disease demonstrated. Abdomen X-Ray 07/19/18 17:13 CONCLUSION: Nasogastric tube tip the upper stomach. Assessment and Plan - Plan 62-year-old man with Sepsis: Secondary to acute cholecystitis Currently on Zosyn pending culture report Acute cholecystitis CT abdomen noted and reviewed with finding noted Appreciate input from general surgery who plan for lap cholecystectomy possible July 21 or Continue with IV Zosyn Adynamic ileus Continue of NG tube, n.p.o., IV fluid hydration Management per general surgery Check Flat and upright in AM 07/21 Umbilical hernia Likely repair next week by general surgery on July 21 or Chronic pain syndrome Continue with current pain management and resume outpatient meds when able to tolerate PO Patient to follow outpatient with pain specialist Hyperlipidemia Resume outpatient medication when able to tolerate p.o. Tobacco abuse Tobacco counseling cessation provided Tx with Nicotine patch DVT prophylaxis: Bilateral SCDs
[2018-07-20 11:34] LABS: Bacteria,Urine Moderate /hpf; Bilirubin,Urine Negative (Negative); Clarity,Urine Hazy (Clear); Color,Urine Yellow (Yellw/Straw); Glucose,Urine (UA) Negative (Negative); Leukocyte Esterase,Urine Negative (Negative); Mucus,Urine Few /lpf (Occasional); Nitrite,Urine Negative (Negative); Squamous Epithelial Cell,Urine <1 /hpf (0-5)
--- NOTE | 2018-07-20 13:46 | ECG ---
Date Performed: 07/19/2018 Time Performed: 16:51:29 PTAGE: 62 years EKG: Sinus rhythm NORMAL ECG NO PREVIOUS TRACING DOCTOR: Nick Cox Interpretating Date/Time 07/20/2018 13:44:14
[2018-07-20] MEDS: Morphine Sulfate 15 MG SR Tablet PO SCH (15:49)
[2018-07-21] MEDS: Piperacil/Tazo 3.375 GM Premix 50 ML IV.SIG SCH ×4 (01:30→19:18)
[2018-07-21] MEDS ORDERED: Metoprolol Inj 5 MG/5 ML Vial IV.PUSH ONE (03:18)
[2018-07-21] MEDS: Morphine Sulfate 15 MG SR Tablet PO SCH ×2 (04:42→19:19)
[2018-07-21] MEDS: Metoprolol Inj 5 MG/5 ML Vial IV.PUSH PRN ×3 (04:42→05:04)
[2018-07-21 05:43] LABS: Baso % (Auto) 0.1 % (0.0-2.0); Eos # (Auto) 0.1 th/mm3 (0.0-0.4); Eos % (Auto) 0.4 % (0.0-4.0); Hematocrit 40.6 % (39.0-51.0); Hemoglobin 14.2 gm/dL (13.0-17.0); Lymph % (Auto) 5.8 % (9.0-44.0); Mean Corpuscular HGB Conc 34.9 % (32.0-36.0); Mean Corpuscular Hemoglobin 32.1 pg (27.0-34.0); Mean Corpuscular Volume 91.9 fL (80.0-100.0); Mean Platelet Volume 7.6 fL (7.0-11.0); Mono # (Auto) 1.7 th/mm3 (0.0-0.9); Mono % (Auto) 9.7 % (0.0-8.0); Neut # (Auto) 14.8 th/mm3 (1.8-7.7); Platelet Count 340 th/mm3 (150-450); Red Blood Count 4.42 mil/mm3 (4.50-5.90); White Blood Count 17.6 th/mm3 (4.0-11.0)
[2018-07-21 05:56] LABS: Alanine Aminotransferase 33 U/L (12-78); Albumin 2.5 g/dL (3.4-5.0); Anion Gap 6 meq/L (5-15); Aspartate Aminotransferase 28 U/L (15-37); Blood Urea Nitrogen 21 mg/dL (7-18); Calcium 8.8 mg/dL (8.5-10.1); Carbon Dioxide 27.5 meq/L (21.0-32.0); Chloride 108 meq/L (98-107); Glomerular Filtration Rate Greater Than 89 mL/min (>89); Glucose,Random 122 mg/dL (74-106); Potassium 3.8 meq/L (3.5-5.1); Sodium 141 meq/L (136-145)
[2018-07-21 05:58] LABS: Alkaline Phosphatase 114 U/L (45-117); Total Protein 7.1 g/dL (6.4-8.2)
[2018-07-21] MEDS: Morphine Inj 4 MG/ML Vial IV.PUSH PRN (06:51)
[2018-07-21] MEDS ORDERED: Lidocaine 1%/Epinephrine 1:100,000 Inj 30 ML Vial ONE (09:39)
[2018-07-21] MEDS ORDERED: Bupivacaine/Epinephrine Inj 0.25% 50 ML Vial ONE (09:39)
[2018-07-21] MEDS ORDERED: Chlorhexidine Gluconate 2% 1 Pack (2 Cloths) TOPICAL ONE (10:25)
[2018-07-21] MEDS ORDERED: Metoprolol Tartrate 25 MG Tablet PO ONE (10:25)
[2018-07-21] MEDS ORDERED: Phenylephrine/NS 1000 MCG/10ML Syringe IV.PUSH ONE (10:40)
[2018-07-21] MEDS ORDERED: Glycopyrrolate Inj 1 MG/5 ML Syringe IV.PUSH ONE (10:40)
[2018-07-21] MEDS ORDERED: HYDROmorphone PF Inj 2 MG/ML Vial ONE (10:40)
[2018-07-21] MEDS ORDERED: Neostigmine Inj 5 MG/5 ML Syringe IV.PUSH ONE (10:40)
[2018-07-21] MEDS ORDERED: Esmolol Bolus Inj 100 MG/10 ML Vial IV.PUSH ONE (10:40)
[2018-07-21] MEDS ORDERED: Lidocaine PF 1% Inj 5 ML Syringe OTHER ONE (10:40)
[2018-07-21] MEDS ORDERED: Normosol-R pH 7.4 Inj 2,000 ML IV.CONT ONE (10:40)
[2018-07-21] MEDS ORDERED: Sodium Chlor 0.9% Inj 500 ML IV.SIG ONE (11:00)
--- NOTE | 2018-07-21 13:09 | P.OP ---
- Preoperative Diagnosis (1) Acute cholecystitis due to biliary calculus - Postoperative Diagnosis (1) Acute cholecystitis due to biliary calculus Date of procedure: 07/21/18 Procedure: Laparoscopic cholecystectomy Primary repair of umbilical hernia Anesthesia: VIDHYA Surgeon: Reji Castro MD Cardiology Clinical Nurse Specialist: Arnav Liriano CFA Estimated blood loss (mL): 700 IV fluids (mL): 3,700 Pathology: other (Gallbladder and contents to pathology) Operation and Findings: Gallbladder with acute, necrotizing, gangrenous cholecystitis. Patient was taken to the operating room and placed on the operating table in the supine position. After an adequate level of general endotracheal anesthesia was achieved the abdomen was prepped and draped in the usual fashion. Time-out was taken, confirming the correct patient, site, and procedure to be performed. Skin and subcutaneous tissue was infiltrated with local anesthetic and an incision made in the umbilicus and carried through the fascia sharply. The preperitoneal fatty tissue, which comprised and umbilical hernia, was reduced into the abdominal cavity and a 12 mm balloon trocar was inserted and the balloon inflated. The abdomen was insufflated. The patient was placed in reverse Trendelenburg position. Three 5 mm trocars were then placed, with the first to the right of the falciform ligament and second and third in the right subcostal region. All entered the abdominal cavity under direct vision uneventfully. The patient had omentum and colon adhered to the anterior abdominal wall. This was taken down easily with gentle blunt dissection. Following this, the omentum was taken off of the gallbladder wall which was intensely inflamed. The gallbladder was punctured with an aspirating needle and approximately 80 mls of brownish bile was removed. This allowed for the gallbladder to be grasped and retracted upward. The cystic duct-infundibular junction was eventually located but was in extremely severe inflammatory tissue. The cystic artery was identified but was quite small and with all of the inflammatory tissue a single clip was placed to control it. This was divided. Due to the very intense inflammation and inflammatory process, it was elected to proceed with a dome down approach for the dissection of the gallbladder off of the liver bed. This was accomplished with a combination of gentle blunt dissection and electrocautery. The gallbladder was dissected down to beyond the infundibulum and a 0 PDS Endoloop was then slipped over the gallbladder and cinched down at the cystic duct. The gallbladder was then sharply divided approximately 1 cm proximal to the suture. The gallbladder was placed into an Endo Catch device and removed via the umbilical port while observing via the 5 mm upper abdominal trocar. The specimen was passed off the table. The upper abdomen was re-visualized and the liver bed was seen to be hemostatic. Two small oozing points were controlled with electrocautery. The cystic artery stump and cystic duct stump were seen to be clean and dry. One small portion of inflammatory tissue had a persistent ooze which was easily controlled with minimal use of electrocautery. When this was completed, due to the extremely large area of raw surface, a ALBINA drain was brought in via the the upper 5 mm trocar and out via the lateral 5 mm trocar site. The drain was secured with a 3-0 nylon suture. Insufflation was discontinued and the remaining 5 mm trocar was removed. No bleeding was noted from the trocar sites during desufflation. The laparoscope and umbilical port were then removed. The fascia was closed in the umbilicus with #1 Prolene suture in a simple interrupted fashion. The remaining local anesthetic was injected into the trocar sites. The skin was closed at the 2 upper more medial 5 mm trocar sites and in the umbilicus with 4-0 Vicryl in an interrupted buried fashion. The 5 mm trocar sites were dressed with Steri-Strips. The drain site was dressed with a 4 x 4. The umbilicus was dressed with a 4 x 4 and Tegaderm. The patient was extubated and taken back to the recovery room in stable condition. Sponge and needle counts were reported to be correct.
[2018-07-21] MEDS ORDERED: fentaNYL Citrate Inj 100 MCG/2 ML Ampul ONE (13:13)
[2018-07-21 13:32] LABS: Baso % (Auto) 0.2 % (0.0-2.0); Eos % (Auto) 0.2 % (0.0-4.0); Hematocrit 43.7 % (39.0-51.0); Hemoglobin 14.3 gm/dL (13.0-17.0); Lymph # (Auto) 2.4 th/mm3 (1.0-4.8); Lymph % (Auto) 11.3 % (9.0-44.0); Mean Corpuscular HGB Conc 32.8 % (32.0-36.0); Mean Corpuscular Hemoglobin 31.5 pg (27.0-34.0); Mean Corpuscular Volume 95.9 fL (80.0-100.0); Mean Platelet Volume 7.8 fL (7.0-11.0); Mono # (Auto) 1.3 th/mm3 (0.0-0.9); Mono % (Auto) 5.9 % (0.0-8.0); Neut # (Auto) 17.5 th/mm3 (1.8-7.7); Neut % (Auto) 82.4 % (16.0-70.0); Platelet Count 351 th/mm3 (150-450); Red Blood Count 4.56 mil/mm3 (4.50-5.90); Red Cell Distribution Width 13.4 % (11.6-17.2); White Blood Count 21.2 th/mm3 (4.0-11.0)
[2018-07-21] MEDS ORDERED: *morphine SULFATE 4 MG/ML PERIprocedure ONLY ONE ×2 (13:34→19:29)
[2018-07-21] MEDS ORDERED: niCARdipine Inj 25 MG/10 ML Vial ONE (13:54)
[2018-07-21] MEDS ORDERED: dilTIAZem Inj 125 MG in Sodium Chlor 0.9% Inj 100 ML IV.CONT PRN (14:20)
[2018-07-21] MEDS ORDERED: Mag Sulf 1 gm/100 ml Premix 200 ML IV.SIG ONE (14:20)
[2018-07-21] MEDS ORDERED: Adenosine Inj 6 MG/2 ML Syringe IV.PUSH ONE ×2 (14:54→15:00)
--- NOTE | 2018-07-21 15:20 | P.PN ---
Subjective Interval history: Follow-up sepsis/cholecystitis/ileus July 20, 2018-patient seen and examined, currently n.p.o. with increase NG tube output. Abdominal tenderness otherwise no chest pain or shortness of breath. Afebrile. July 21, 2018-patient seen and examined in PACU, he is postop lap cholecystectomy complicated by A. fib with RVR for which cardiology was consulted. Case discussed with Dr. Bowman Physical Exam Vital signs: Vital Signs 07/20/18 16:00 07/20/18 18:00 07/20/18 19:00 Temperature 98.6 F Pulse Rate 110 H 100 H Respiratory Rate 20 22 Blood Pressure 143/93 H Pulse Oximetry 93 L 07/20/18 20:00 07/20/18 21:00 07/20/18 22:00 Temperature 98.7 F Pulse Rate 102 H 102 H 94 H Respiratory Rate 20 Blood Pressure 148/81 H Pulse Oximetry 94 L 07/20/18 23:00 07/20/18 23:39 07/21/18 00:00 Temperature Pulse Rate 104 H 96 H 88 Respiratory Rate 20 Blood Pressure 136/84 Pulse Oximetry 95 07/21/18 01:00 07/21/18 02:00 07/21/18 03:00 Temperature Pulse Rate 88 98 H 151 H Respiratory Rate Blood Pressure Pulse Oximetry 07/21/18 04:00 07/21/18 04:49 07/21/18 04:50 Temperature 98.2 F Pulse Rate 134 H 132 H 131 H Respiratory Rate 20 Blood Pressure 123/78 110/83 103/83 Pulse Oximetry 94 L 07/21/18 04:51 07/21/18 04:54 07/21/18 04:57 Temperature Pulse Rate 130 H 130 H 130 H Respiratory Rate Blood Pressure 111/86 108/92 H 95/75 L Pulse Oximetry 07/21/18 05:00 07/21/18 05:03 07/21/18 05:06 Temperature Pulse Rate 130 H 128 H 127 H Respiratory Rate Blood Pressure 105/81 111/74 97/79 L Pulse Oximetry 07/21/18 05:09 07/21/18 05:12 07/21/18 06:00 Temperature Pulse Rate 127 H 126 H 130 H Respiratory Rate Blood Pressure 114/77 109/71 Pulse Oximetry 07/21/18 07:00 07/21/18 08:00 Temperature 97.9 F Pulse Rate 136 H 132 H Respiratory Rate 18 Blood Pressure 132/78 Pulse Oximetry 94 L Intake & Output 07/20/18 07/21/18 07/21/18 18:59 06:59 18:59 Intake Total 1100 / 1100 1050 / 1050 3750 / 3750 Output Total 1035 / 1035 900 / 900 700 / 700 Balance 65 / 65 150 / 150 3050 / 3050 Weight 84.3 kg Intake: IV 1100 / 1100 1050 / 1050 50 / 50 NS Inj 1,000 ML @ 75 mls/hr IV. 1000 / 1000 1000 / 1000 CONT .[id number] DENILSON Rx#:[id number] Zosyn 3.375 GM Premix 50 ML @ 100 / 100 50 / 50 50 / 50 100 mls/hr IV.SIG Q8H DENILSON Rx#: [id number] Oral 0 / 0 Anesthesia Amount 3700 / 3700 Output: Urine 400 / 400 600 / 600 Estimated Blood Loss 700 / 700 Gastric Drainage 635 / 635 300 / 300 Right Nare Nasogastric Tube 635 / 635 300 / 300 Other: # Voids 1 Date of Last Bowel Movement 07/17/18 07/17/18 07/17/18 Narrative: GENERAL: NAD with NGT in place SKIN: Warm and dry. HEAD: Normocephalic. EYES: No scleral icterus. No injection or drainage. NECK: Supple, trachea midline. No JVD or lymphadenopathy. CARDIOVASCULAR: Regular rate and rhythm without murmurs, gallops, or rubs. RESPIRATORY: Breath sounds equal bilaterally. No accessory muscle use. GASTROINTESTINAL: Abdomen soft, mildly tender, nondistended. hypoactive BS. Umbilical hernia MUSCULOSKELETAL: No cyanosis, or edema. BACK: Nontender without obvious deformity. No CVA tenderness. Results - Labs CBC & Chem 7: 07/21/18 13:22 07/21/18 14:17 Laboratory Results - last 24 hr 07/21/18 07/21/18 07/21/18 05:25 05:25 05:25 WBC 17.6 H RBC 4.42 L Hgb 14.2 Hct 40.6 MCV 91.9 MCH 32.1 MCHC 34.9 RDW 13.0 Plt Count 340 MPV 7.6 Neut % (Auto) 84.0 H Lymph % (Auto) 5.8 L [place] % (Auto) 9.7 H Eos % (Auto) 0.4 Baso % (Auto) 0.1 Neut # (Auto) 14.8 H Lymph # (Auto) 1.0 [place] # (Auto) 1.7 H Eos # (Auto) 0.1 Baso # (Auto) 0.0 WBC Differential . Differential Comment Auto diff final Sodium 141 Potassium 3.8 Chloride 108 H Carbon Dioxide 27.5 Anion Gap 6 BUN 21 H Creatinine 0.65 Estimated GFR Greater than 89 Random Glucose 122 H Lactic Acid 0.8 Calcium 8.8 Magnesium Total Bilirubin 0.3 AST 28 ALT 33 Alkaline Phosphatase 114 Total Protein 7.1 Albumin 2.5 L 07/21/18 07/21/18 07/21/18 13:22 14:17 14:17 WBC 21.2 H RBC 4.56 Hgb 14.3 Hct 43.7 MCV 95.9 D MCH 31.5 MCHC 32.8 RDW 13.4 Plt Count 351 MPV 7.8 Neut % (Auto) 82.4 H Lymph % (Auto) 11.3 [place] % (Auto) 5.9 Eos % (Auto) 0.2 Baso % (Auto) 0.2 Neut # (Auto) 17.5 H Lymph # (Auto) 2.4 [place] # (Auto) 1.3 H Eos # (Auto) 0.0 Baso # (Auto) 0.0 WBC Differential . Differential Comment Auto diff final Sodium Potassium 4.2 Chloride Carbon Dioxide Anion Gap BUN Creatinine Estimated GFR Random Glucose Lactic Acid Calcium Magnesium 2.3 Total Bilirubin AST ALT Alkaline Phosphatase Total Protein Albumin Microbiology 07/20/18 10:55 Clean Catch Urine Urine Culture - Preliminary No growth in 24 hours Assessment and Plan - Plan 62-year-old man with Sepsis: Secondary to acute cholecystitis Currently on Zosyn pending culture report Acute cholecystitis CT abdomen noted and reviewed with finding noted Appreciate input from general surgery and s/p lap cholecystectomy July 21 2018 Continue with IV Zosyn Adynamic ileus Continue of NG tube, n.p.o., IV fluid hydration Management per general surgery Keep NGT until 07/22/18 Umbilical hernia Likely repair next week by general surgery on July 21 or Chronic pain syndrome Continue with current pain management and resume outpatient meds when able to tolerate PO Patient to follow outpatient with pain specialist Hyperlipidemia Resume outpatient medication when able to tolerate p.o. Tobacco abuse Tobacco counseling cessation provided Tx with Nicotine patch Afib with RVR vs Tachy Cardiology consulted DVT prophylaxis: Bilateral SCDs
[2018-07-21] MEDS: Sod Chloride 0.9% Inj 1,000 ML IV.CONT SCH (17:35)
[2018-07-21] MEDS: Metoprolol Inj 5 MG/5 ML Vial IV.PUSH SCH (20:00)
[2018-07-21] MEDS ORDERED: *HYDROmorphone PF Inj 1 MG/ML Ampul PERIprocedural Use ONLY ONE (21:31)
--- NOTE | 2018-07-21 23:40 | P.PCNCA ---
- Cardiology Procedure Note Procedure: Pharmacologic Cardioversion with Adenosine for AVNRT Procedure Date: 07/21/18 Procedure Detail: Review of EKG shows SVT at 140bpm, most likely AVNRT Risks, benefits and alternatives discussed with the patient. Crash cart placed at the bedside. Adenosine 6mg given. SVT broke to sinus rhythm. Patient tolerated the procedure well. Plan: Discussed with Dr. Castro, will plan to send to [facility] Liquid diet, so placed on Lopressor 5mg IV q6hrs Once on full diet, will change to Lopressor PO
--- NOTE | 2018-07-22 00:06 | MB ---
cc: Carson Bowman DO DATE: 07/21/2018 REASON FOR CONSULTATION: SVT. HISTORY OF PRESENT ILLNESS: Dionte Brown is a 62-year-old male who originally presented on 07/19/2018 with acute onset of right upper quadrant pain. He states that the pain started after Thanksgiving dinner. At first, the pain was mild, but on 07/19/2018, he woke up with pain that was acute and severe and so came to the emergency room. He was found to have cholecystitis and mild tachycardia. He met criteria for sepsis on admission. He was seen by Dr. Castro. It was felt that he needed to undergo a cholecystectomy as well as hernia repair. Apparently, sometime this morning, his heart rate elevated into the 130s and continued throughout surgery today. After surgery, he was given a dose of Cardizem 25 mg, which dropped his heart rate from 150 to 130. I was asked by anesthesia to evaluate the patient in the PACU due to continued tachycardia. In seeing him, the patient is postoperative, awake with no complaints. EKG was done, which shows a regular narrow complex tachycardia. PAST MEDICAL HISTORY: 1. COPD. 2. Chronic pain. 3. Hyperlipidemia. PAST SURGICAL HISTORY: Fusion of lumbar spine. ALLERGIES: NO KNOWN DRUG ALLERGIES. MEDICATIONS: 1. Oxycodone/acetaminophen 10/325 mg every 4-6 hours as needed. 2. Morphine 15 mg extended release every 12 hours. 3. Pravastatin 20 mg daily. 4. Gabapentin 600 mg daily. FAMILY HISTORY: Denies premature coronary artery disease or sudden cardiac within the family. SOCIAL HISTORY: The patient smokes a pack of cigarettes daily. Denies alcohol or drug abuse. REVIEW OF SYSTEMS: Fourteen systems were reviewed including osteopathic. Pertinent positives and negatives above, otherwise negative. PHYSICAL EXAMINATION: VITAL SIGNS: Temperature 98.3, heart rate 140, blood pressure 113/57, respirations 17, pulse oximetry 95% on 2 liters. GENERAL: The patient appears well, in no acute distress, alert, awake and oriented x3. HEENT: Extraocular muscles intact. Mucous membranes moist. NECK: Supple. No JVD at 45 degrees. No carotid bruits heard bilaterally. Carotid upstroke is brisk in nature. HEART: Tachycardic, but regular. Positive first and second heart sounds with no noted murmurs, gallops or rubs. LUNGS: Clear to auscultation bilaterally. No wheezes, rales or rhonchi. ABDOMEN: The abdomen is nondistended and mildly tender at incision points. ALBINA drain noted. EXTREMITIES: Show no clubbing, cyanosis or edema. Femoral and distal pulses are intact bilaterally. NEUROLOGIC: No focal deficits. SKIN: Warm, dry and intact. OSTEOPATHIC: No kyphoscoliosis, lordosis or paraspinal tender points. LABORATORY DATA: Hemoglobin 14.3, hematocrit 43.7, platelets 351. Potassium 4.2, BUN 21, creatinine 0.65, magnesium 2.3. Electrocardiogram (07/21/2018 at 1352 hours): Regular narrow supraventricular tachycardia, most likely AVNRT, incomplete right bundle branch block, nonspecific ST-T wave changes. IMPRESSIONS: 1. 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 2. Cholecystitis, status post cholecystectomy, postoperative day #0. 3. Tobacco abuse. 4. Hyperlipidemia. RECOMMENDATIONS: 1. Mr. Brown appears to be in a regular narrow complex supraventricular tachycardia, most likely AV laol reentry tachycardia. 2. He has been given Cardizem and did not break. 3. Ultimately, I think that although he is asymptomatic, he should not continue with a heart rate in the 140s-150s, as this will be detrimental. 4. We will plan on undergoing pharmacologic cardioversion with adenosine. Please see procedure note for pharmacologic cardioversion. 5. Afterwards, as he will be on a liquid diet, we will place him on Lopressor IV scheduled and once taking a full diet, he will be switched over to oral metoprolol. 6. I spoke to him for greater than 3 minutes about tobacco cessation. Thank you for allowing me to see Dionte Brown. If there are any questions, please do not hesitate to call. DO NGHIA Barahona/royer , 11:37 PM , 11:48 PM
[2018-07-22] MEDS: Morphine Inj 4 MG/ML Vial IV.PUSH PRN ×6 (01:00→19:44)
[2018-07-22] MEDS: Piperacil/Tazo 3.375 GM Premix 50 ML IV.SIG SCH ×3 (01:57→16:44)
[2018-07-22] MEDS: Sod Chloride 0.9% Inj 1,000 ML IV.CONT SCH ×3 (02:00→22:59)
[2018-07-22] MEDS: Metoprolol Inj 5 MG/5 ML Vial IV.PUSH SCH ×4 (02:11→19:45)
[2018-07-22] MEDS: Morphine Sulfate 15 MG SR Tablet PO SCH ×2 (03:14→15:52)
[2018-07-22 06:23] LABS: Baso % (Auto) 0.2 % (0.0-2.0); Eos % (Auto) 0.1 % (0.0-4.0); Hematocrit 37.6 % (39.0-51.0); Hemoglobin 12.9 gm/dL (13.0-17.0); Lymph # (Auto) 1.7 th/mm3 (1.0-4.8); Lymph % (Auto) 9.4 % (9.0-44.0); Mean Corpuscular HGB Conc 34.2 % (32.0-36.0); Mean Corpuscular Hemoglobin 31.8 pg (27.0-34.0); Mean Corpuscular Volume 92.8 fL (80.0-100.0); Mean Platelet Volume 7.7 fL (7.0-11.0); Mono # (Auto) 1.5 th/mm3 (0.0-0.9); Mono % (Auto) 8.7 % (0.0-8.0); Neut # (Auto) 14.5 th/mm3 (1.8-7.7); Neut % (Auto) 81.6 % (16.0-70.0); Platelet Count 347 th/mm3 (150-450); Red Blood Count 4.05 mil/mm3 (4.50-5.90); Red Cell Distribution Width 12.7 % (11.6-17.2); White Blood Count 17.7 th/mm3 (4.0-11.0)
--- NOTE | 2018-07-22 06:42 | ECG ---
Date Performed: 07/21/2018 Time Performed: 03:25:32 PTAGE: 62 years EKG: Surpraventricular Tachycardia Inferior/lateral ST-T changes are nonspecific Abnormal ECG PREVIOUS TRACING : 07/20/2018 13.26 Since the previous tracing, no significant change noted DOCTOR: Kush Spencer Interpretating Date/Time 07/22/2018 06:41:31
[2018-07-22 06:51] LABS: Alanine Aminotransferase 91 U/L (12-78); Albumin 2.2 g/dL (3.4-5.0); Anion Gap 6 meq/L (5-15); Aspartate Aminotransferase 95 U/L (15-37); Blood Urea Nitrogen 19 mg/dL (7-18); Calcium 8.4 mg/dL (8.5-10.1); Carbon Dioxide 28.6 meq/L (21.0-32.0); Chloride 107 meq/L (98-107); Glomerular Filtration Rate Greater Than 89 mL/min (>89); Glucose,Random 113 mg/dL (74-106); Potassium 3.7 meq/L (3.5-5.1); Sodium 142 meq/L (136-145)
--- NOTE | 2018-07-22 06:55 | ECG ---
Date Performed: 07/20/2018 Time Performed: 13:26:22 PTAGE: 62 years EKG: Supraventricular tachycardia Inferior ST-T changes are nonspecific Abnormal ECG PREVIOUS TRACING : 07/19/2018 16.51 Compared to previous tracing, SVT is new DOCTOR: Kush Spencer Interpretating Date/Time 07/22/2018 06:52:47
[2018-07-22 06:57] LABS: Alkaline Phosphatase 101 U/L (45-117); Total Protein 6.3 g/dL (6.4-8.2)
--- NOTE | 2018-07-22 11:48 | XR ---
EXAM DATE: 07/22/2018 11:43 AM EST AGE/SEX: 62 years / Male INDICATIONS: Vomiting. NG Tube placement. CLINICAL DATA: This is the patient's subsequent encounter. Patient reports that signs and symptoms h ave been present for 4 - 6 days and indicates a pain score of 0/10. MEDICAL/SURGICAL HISTORY: . Umbilical hernia. . Lumbar fusion. Stimulator COMPARISON: [facility] [place], ABDOMEN UPRIGHT ONLY, 07/19/2018. . FINDINGS: A nasogastric tube coils into the stomach. Spinal stimulator is noted. There is mild gaseous distent ion of large and small bowel over the abdomen and pelvis, nonspecific. No definite suspicious calcifi c densities. Previous lumbosacral hardware fusion. CONCLUSION: NG tube in good position Electronically signed by: Rito Ritchie MD 07/22/2018 11:47 AM EST
[2018-07-22] MEDS: Pantoprazole Inj 40 MG Vial IV.PUSH SCH (12:42)
--- NOTE | 2018-07-22 13:08 | P.PNGS ---
Subjective Interval history: Resting in bed Quite agitated Physical Exam Vital signs: Vital Signs 07/21/18 13:05 07/21/18 13:15 07/21/18 13:30 Temperature 98.3 F Pulse Rate 145 H 145 H 149 H Respiratory Rate 14 17 15 Blood Pressure 136/88 134/80 129/76 Pulse Oximetry 89 L 91 L 93 L 07/21/18 13:45 07/21/18 14:00 07/21/18 14:15 Temperature Pulse Rate 149 H 142 H 142 H Respiratory Rate 15 16 16 Blood Pressure 135/79 116/70 106/70 Pulse Oximetry 93 L 95 93 L 07/21/18 14:30 07/21/18 15:00 07/21/18 15:02 Temperature Pulse Rate 141 H 140 H 92 H Respiratory Rate 15 17 15 Blood Pressure 117/70 113/57 L 110/64 Pulse Oximetry 93 L 95 95 07/21/18 15:04 07/21/18 15:30 07/21/18 15:45 Temperature Pulse Rate 89 98 H 92 H Respiratory Rate 15 15 17 Blood Pressure 109/66 118/66 107/61 Pulse Oximetry 95 95 94 L 07/21/18 16:00 07/21/18 16:30 07/21/18 16:45 Temperature Pulse Rate 86 87 83 Respiratory Rate 15 15 15 Blood Pressure 110/63 113/64 114/65 Pulse Oximetry 93 L 93 L 92 L 07/21/18 17:15 07/21/18 18:45 07/21/18 19:45 Temperature 98.0 F Pulse Rate 98 H 85 82 Respiratory Rate 15 15 15 Blood Pressure 135/61 115/68 120/68 Pulse Oximetry 93 L 93 L 94 L 07/21/18 20:00 07/21/18 21:00 07/21/18 22:00 Temperature 98.2 F Pulse Rate 86 85 81 Respiratory Rate 24 22 22 Blood Pressure 120/69 117/73 121/68 Pulse Oximetry 93 L 93 L 92 L 07/21/18 22:45 07/21/18 22:51 07/21/18 23:00 Temperature 98.5 F 98.4 F Pulse Rate 79 88 90 Respiratory Rate 24 19 33 H Blood Pressure 124/66 124/73 122/67 Pulse Oximetry 92 L 93 L 07/22/18 00:00 07/22/18 01:00 07/22/18 02:00 Temperature 98.3 F Pulse Rate 81 78 81 Respiratory Rate 20 19 16 Blood Pressure 114/66 126/68 117/67 Pulse Oximetry 93 L 91 L 92 L 07/22/18 03:00 07/22/18 04:00 07/22/18 05:00 Temperature 98.6 F Pulse Rate 76 76 75 Respiratory Rate 24 25 H 23 Blood Pressure 119/67 121/67 128/69 Pulse Oximetry 93 L 93 L 93 L 07/22/18 06:00 07/22/18 07:00 07/22/18 07:17 Temperature Pulse Rate 72 65 Respiratory Rate 20 Blood Pressure 127/69 Pulse Oximetry 92 L 92 L 07/22/18 08:00 07/22/18 09:00 07/22/18 10:00 Temperature 98.9 F Pulse Rate 69 57 L 64 Respiratory Rate 22 22 Blood Pressure 141/72 H 162/77 H Pulse Oximetry 91 L 92 L Intake & Output 07/21/18 07/22/18 07/22/18 18:59 06:59 18:59 Intake Total 4800 / 4800 2221 / 2221 50 / 50 Output Total 700 / 700 3030 / 3030 Balance 4100 / 4100 -809 / -809 50 / 50 Weight 88.1 kg Intake: IV 1100 / 1100 1050 / 1050 50 / 50 NS Inj 1,000 ML @ 75 mls/hr IV. 1000 / 1000 1000 / 1000 CONT .[id number] [facility] Rx#:[id number] Zosyn 3.375 GM Premix 50 ML @ 100 / 100 50 / 50 50 / 50 100 mls/hr IV.SIG Q8H [facility] Rx#: [id number] Oral 720 / 720 Anesthesia Amount 3700 / 3700 Other 451 / 451 Output: Urine 1300 / 1300 Estimated Blood Loss 700 / 700 Gastric Drainage 1700 / 1700 Right Nare Nasogastric Tube 1700 / 1700 Wound Drainage 30 / 30 # 1 Right Abdomen ALBINA Drain 30 Other: # Voids 2 Date of Last Bowel Movement 07/17/18 07/17/18 07/17/18 # Bowel Movements 0 Results - Labs 07/22/18 05:20 07/22/18 05:20 Laboratory Results - last 24 hr 07/21/18 07/21/18 07/21/18 13:22 14:17 14:17 WBC 21.2 H RBC 4.56 Hgb 14.3 Hct 43.7 MCV 95.9 D MCH 31.5 MCHC 32.8 RDW 13.4 Plt Count 351 MPV 7.8 Neut % (Auto) 82.4 H Lymph % (Auto) 11.3 [place] % (Auto) 5.9 Eos % (Auto) 0.2 Baso % (Auto) 0.2 Neut # (Auto) 17.5 H Lymph # (Auto) 2.4 [place] # (Auto) 1.3 H Eos # (Auto) 0.0 Baso # (Auto) 0.0 WBC Differential . Differential Comment Auto diff final Sodium Potassium 4.2 Chloride Carbon Dioxide Anion Gap BUN Creatinine Estimated GFR Random Glucose Calcium Magnesium 2.3 Total Bilirubin AST ALT Alkaline Phosphatase Total Protein Albumin 07/22/18 07/22/18 05:20 05:20 WBC 17.7 H RBC 4.05 L Hgb 12.9 L Hct 37.6 L MCV 92.8 MCH 31.8 MCHC 34.2 RDW 12.7 Plt Count 347 MPV 7.7 Neut % (Auto) 81.6 H Lymph % (Auto) 9.4 [place] % (Auto) 8.7 H Eos % (Auto) 0.1 Baso % (Auto) 0.2 Neut # (Auto) 14.5 H Lymph # (Auto) 1.7 [place] # (Auto) 1.5 H Eos # (Auto) 0.0 Baso # (Auto) 0.0 WBC Differential . Differential Comment Auto diff final Sodium 142 Potassium 3.7 Chloride 107 Carbon Dioxide 28.6 Anion Gap 6 BUN 19 H Creatinine 0.65 Estimated GFR Greater than 89 Random Glucose 113 H Calcium 8.4 L Magnesium Total Bilirubin 0.3 AST 95 H ALT 91 H Alkaline Phosphatase 101 Total Protein 6.3 L D Albumin 2.2 L - Imaging Imaging: ITS Impressions Abdomen/Pelvis CT 07/19/18 13:54 CONCLUSION: 1. Findings most consistent with cholelithiasis and acute cholecystitis. 2. 2.1 cm indeterminate density right adrenal mass. Adrenal mass protocol CT or MRI examination may be performed on an outpatient basis for further evaluation. 3. Moderate sigmoid diverticulosis without evidence for diverticulitis. 4. Marginal fluid filled loops of small bowel in the left upper abdomen which may reflect developing adynamic ileus. 5. Additional ancillary findings, as above. Chest X-Ray 07/19/18 16:12 CONCLUSION: No acute cardiopulmonary disease demonstrated. Abdomen X-Ray 07/22/18 00:00 CONCLUSION: NG tube in good position Assessment and Plan - Assessment (1) Acute cholecystitis due to biliary calculus Code(s): K80.00 - Calculus of gallbladder with acute cholecystitis without obstruction Status: Acute
--- NOTE | 2018-07-22 14:35 | P.PNIM ---
Subjective Interval history: Patient complains of some abdominal pain. He also has shortness of breath but currently comfortable on supplemental oxygen. Physical Exam Vital signs: Vital Signs 07/21/18 14:15 07/21/18 14:30 07/21/18 15:00 Temperature Pulse Rate 142 H 141 H 140 H Respiratory Rate 16 15 17 Blood Pressure 106/70 117/70 113/57 L Pulse Oximetry 93 L 93 L 95 07/21/18 15:02 07/21/18 15:04 07/21/18 15:30 Temperature Pulse Rate 92 H 89 98 H Respiratory Rate 15 15 15 Blood Pressure 110/64 109/66 118/66 Pulse Oximetry 95 95 95 07/21/18 15:45 07/21/18 16:00 07/21/18 16:30 Temperature Pulse Rate 92 H 86 87 Respiratory Rate 17 15 15 Blood Pressure 107/61 110/63 113/64 Pulse Oximetry 94 L 93 L 93 L 07/21/18 16:45 07/21/18 17:15 07/21/18 18:45 Temperature 98.0 F Pulse Rate 83 98 H 85 Respiratory Rate 15 15 15 Blood Pressure 114/65 135/61 115/68 Pulse Oximetry 92 L 93 L 93 L 07/21/18 19:45 07/21/18 20:00 07/21/18 21:00 Temperature 98.2 F Pulse Rate 82 86 85 Respiratory Rate 15 24 22 Blood Pressure 120/68 120/69 117/73 Pulse Oximetry 94 L 93 L 93 L 07/21/18 22:00 07/21/18 22:45 07/21/18 22:51 Temperature 98.5 F 98.4 F Pulse Rate 81 79 88 Respiratory Rate 22 24 19 Blood Pressure 121/68 124/66 124/73 Pulse Oximetry 92 L 92 L 07/21/18 23:00 07/22/18 00:00 07/22/18 01:00 Temperature 98.3 F Pulse Rate 90 81 78 Respiratory Rate 33 H 20 19 Blood Pressure 122/67 114/66 126/68 Pulse Oximetry 93 L 93 L 91 L 07/22/18 02:00 07/22/18 03:00 07/22/18 04:00 Temperature 98.6 F Pulse Rate 81 76 76 Respiratory Rate 16 24 25 H Blood Pressure 117/67 119/67 121/67 Pulse Oximetry 92 L 93 L 93 L 07/22/18 05:00 07/22/18 06:00 07/22/18 07:00 Temperature Pulse Rate 75 72 65 Respiratory Rate 23 20 Blood Pressure 128/69 127/69 Pulse Oximetry 93 L 92 L 07/22/18 07:17 07/22/18 08:00 07/22/18 09:00 Temperature 98.9 F Pulse Rate 69 57 L Respiratory Rate 22 22 Blood Pressure 141/72 H 162/77 H Pulse Oximetry 92 L 91 L 92 L 07/22/18 10:00 07/22/18 12:00 Temperature 99.1 F Pulse Rate 64 Respiratory Rate Blood Pressure Pulse Oximetry 96 Intake & Output 07/21/18 07/22/18 07/22/18 18:59 06:59 18:59 Intake Total 4800 / 4800 2221 / 2221 50 / 50 Output Total 700 / 700 3030 / 3030 Balance 4100 / 4100 -809 / -809 50 / 50 Weight 88.1 kg Intake: IV 1100 / 1100 1050 / 1050 50 / 50 NS Inj 1,000 ML @ 75 mls/hr IV. 1000 / 1000 1000 / 1000 CONT .[id number] [facility] Rx#:[id number] Zosyn 3.375 GM Premix 50 ML @ 100 / 100 50 / 50 50 / 50 100 mls/hr IV.SIG Q8H [facility] Rx#: [id number] Oral 720 / 720 Anesthesia Amount 3700 / 3700 Other 451 / 451 Output: Urine 1300 / 1300 Estimated Blood Loss 700 / 700 Gastric Drainage 1700 / 1700 Right Nare Nasogastric Tube 1700 / 1700 Wound Drainage 30 / 30 # 1 Right Abdomen ALBINA Drain 30 30 Other: # Voids 2 Date of Last Bowel Movement 07/17/18 07/17/18 07/17/18 # Bowel Movements 0 Narrative: General patient has complaints of mild abdominal pain. He also complains of some shortness of breath. HEENT extraocular movements are intact, clear oropharyngeal mucosa, NG tube in place. Cardiovascular S1-S2 audible tachycardic Respiratory bibasilar crackles. Abdomen soft, distended, hypoactive bowel sounds Extremities no edema 2+ distal pulses in bilateral upper and lower extremities Neuro patient moves all 4 extremities, sensation is intact bilaterally Results - Labs CBC & Chem 7: 07/22/18 05:20 07/22/18 05:20 Laboratory Results - last 24 hr 07/21/18 07/21/18 07/22/18 14:17 14:17 05:20 WBC 17.7 H RBC 4.05 L Hgb 12.9 L Hct 37.6 L MCV 92.8 MCH 31.8 MCHC 34.2 RDW 12.7 Plt Count 347 MPV 7.7 Neut % (Auto) 81.6 H Lymph % (Auto) 9.4 [place] % (Auto) 8.7 H Eos % (Auto) 0.1 Baso % (Auto) 0.2 Neut # (Auto) 14.5 H Lymph # (Auto) 1.7 [place] # (Auto) 1.5 H Eos # (Auto) 0.0 Baso # (Auto) 0.0 WBC Differential . Differential Comment Auto diff final Sodium Potassium 4.2 Chloride Carbon Dioxide Anion Gap BUN Creatinine Estimated GFR Random Glucose Calcium Magnesium 2.3 Total Bilirubin AST ALT Alkaline Phosphatase Total Protein Albumin 07/22/18 05:20 WBC RBC Hgb Hct MCV MCH MCHC RDW Plt Count MPV Neut % (Auto) Lymph % (Auto) [place] % (Auto) Eos % (Auto) Baso % (Auto) Neut # (Auto) Lymph # (Auto) [place] # (Auto) Eos # (Auto) Baso # (Auto) WBC Differential Differential Comment Sodium 142 Potassium 3.7 Chloride 107 Carbon Dioxide 28.6 Anion Gap 6 BUN 19 H Creatinine 0.65 Estimated GFR Greater than 89 Random Glucose 113 H Calcium 8.4 L Magnesium Total Bilirubin 0.3 AST 95 H ALT 91 H Alkaline Phosphatase 101 Total Protein 6.3 L D Albumin 2.2 L Microbiology 07/20/18 10:55 Clean Catch Urine Urine Culture - Final No growth in 48 hours - Imaging Impressions Abdomen X-Ray 07/22/18 00:00 CONCLUSION: NG tube in good position Assessment and Plan - Plan This patient is a 62-year-old man with COPD, dyslipidemia. The patient presented with findings consistent with acute cholecystitis. Patient was admitted for treatment and during the hospitalization was found to be in SVT which was treated with adenosine. 1. Sepsis secondary to acute cholecystitis. Patient febrile on admission, has not been febrile since then. WBC count downtrending. Patient is status post cholecystectomy. On IV Zosyn. 2. Ileus Patient is now passing gas. Bowel sounds are present. NG tube in place to low wall suction, continue IV fluids Surgery following. Monitor electrolyte and replace as needed. Continue Protonix IV. 3. Acute hypoxic respiratory failure Patient is currently on supplemental oxygen with 5 L of oxygen. Keep O2 sat above 92%. Chest x-ray on 07/19 did not show any significant findings. We will repeat chest x-ray today. 4. Dyslipidemia Patient can resume medications after he is able to tolerate a p.o. diet. 5. SVT Patient was given adenosine yesterday and is now currently in normal sinus rhythm. Heart rate is currently in the low 100s. Continue metoprolol IV as per cardiology's recommendations. Once he is able to tolerate a p.o. diet he will be transitioned over to p.o. beta-olivia. No pharmacotherapy for DVT prophylaxis as the patient, currently has ileus and potentially may need intervention. We will follow-up with surgery regarding the recommendations.
--- NOTE | 2018-07-22 14:41 | P.PNGS ---
Subjective Interval history: Resting in bed Agitated Wants to eat Physical Exam Vital signs: Vital Signs 07/21/18 15:00 07/21/18 15:02 07/21/18 15:04 Temperature Pulse Rate 140 H 92 H 89 Respiratory Rate 17 15 15 Blood Pressure 113/57 L 110/64 109/66 Pulse Oximetry 95 95 95 07/21/18 15:30 07/21/18 15:45 07/21/18 16:00 Temperature Pulse Rate 98 H 92 H 86 Respiratory Rate 15 17 15 Blood Pressure 118/66 107/61 110/63 Pulse Oximetry 95 94 L 93 L 07/21/18 16:30 07/21/18 16:45 07/21/18 17:15 Temperature Pulse Rate 87 83 98 H Respiratory Rate 15 15 15 Blood Pressure 113/64 114/65 135/61 Pulse Oximetry 93 L 92 L 93 L 07/21/18 18:45 07/21/18 19:45 07/21/18 20:00 Temperature 98.0 F 98.2 F Pulse Rate 85 82 86 Respiratory Rate 15 15 24 Blood Pressure 115/68 120/68 120/69 Pulse Oximetry 93 L 94 L 93 L 07/21/18 21:00 07/21/18 22:00 07/21/18 22:45 Temperature 98.5 F Pulse Rate 85 81 79 Respiratory Rate 22 22 24 Blood Pressure 117/73 121/68 124/66 Pulse Oximetry 93 L 92 L 92 L 07/21/18 22:51 07/21/18 23:00 07/22/18 00:00 Temperature 98.4 F 98.3 F Pulse Rate 88 90 81 Respiratory Rate 19 33 H 20 Blood Pressure 124/73 122/67 114/66 Pulse Oximetry 93 L 93 L 07/22/18 01:00 07/22/18 02:00 07/22/18 03:00 Temperature Pulse Rate 78 81 76 Respiratory Rate 19 16 24 Blood Pressure 126/68 117/67 119/67 Pulse Oximetry 91 L 92 L 93 L 07/22/18 04:00 07/22/18 05:00 07/22/18 06:00 Temperature 98.6 F Pulse Rate 76 75 72 Respiratory Rate 25 H 23 20 Blood Pressure 121/67 128/69 127/69 Pulse Oximetry 93 L 93 L 92 L 07/22/18 07:00 07/22/18 07:17 07/22/18 08:00 Temperature 98.9 F Pulse Rate 65 69 Respiratory Rate 22 Blood Pressure 141/72 H Pulse Oximetry 92 L 91 L 07/22/18 09:00 07/22/18 10:00 07/22/18 12:00 Temperature 99.1 F Pulse Rate 57 L 64 Respiratory Rate 22 Blood Pressure 162/77 H Pulse Oximetry 92 L 96 Intake & Output 07/21/18 07/22/18 07/22/18 18:59 06:59 18:59 Intake Total 4800 / 4800 2221 / 2221 50 / 50 Output Total 700 / 700 3030 / 3030 Balance 4100 / 4100 -809 / -809 50 / 50 Weight 88.1 kg Intake: IV 1100 / 1100 1050 / 1050 50 / 50 NS Inj 1,000 ML @ 75 mls/hr IV. 1000 / 1000 1000 / 1000 CONT .[id number] [facility] Rx#:[id number] Zosyn 3.375 GM Premix 50 ML @ 100 / 100 50 / 50 50 / 50 100 mls/hr IV.SIG Q8H [facility] Rx#: [id number] Oral 720 / 720 Anesthesia Amount 3700 / 3700 Other 451 / 451 Output: Urine 1300 / 1300 Estimated Blood Loss 700 / 700 Gastric Drainage 1700 / 1700 Right Nare Nasogastric Tube 1700 / 1700 Wound Drainage # 1 Right Abdomen ALBINA Drain Other: # Voids 2 Date of Last Bowel Movement 07/17/18 07/17/18 07/17/18 # Bowel Movements 0 Narrative: Alert and awake Abd: distended; NGT to LIWS with large amount of drainage ALBINA with serous drainage; lap sites c/d/i; tender at umbilicus; mildly pink around umbilicus under dressing Results - Labs 07/25/18 09:52 07/23/18 05:54 Laboratory Results - last 24 hr 07/21/18 07/21/18 07/22/18 14:17 14:17 05:20 WBC 17.7 H RBC 4.05 L Hgb 12.9 L Hct 37.6 L MCV 92.8 MCH 31.8 MCHC 34.2 RDW 12.7 Plt Count 347 MPV 7.7 Neut % (Auto) 81.6 H Lymph % (Auto) 9.4 [place] % (Auto) 8.7 H Eos % (Auto) 0.1 Baso % (Auto) 0.2 Neut # (Auto) 14.5 H Lymph # (Auto) 1.7 [place] # (Auto) 1.5 H Eos # (Auto) 0.0 Baso # (Auto) 0.0 WBC Differential . Differential Comment Auto diff final Sodium Potassium 4.2 Chloride Carbon Dioxide Anion Gap BUN Creatinine Estimated GFR Random Glucose Calcium Magnesium 2.3 Total Bilirubin AST ALT Alkaline Phosphatase Total Protein Albumin 07/22/18 05:20 WBC RBC Hgb Hct MCV MCH MCHC RDW Plt Count MPV Neut % (Auto) Lymph % (Auto) [place] % (Auto) Eos % (Auto) Baso % (Auto) Neut # (Auto) Lymph # (Auto) [place] # (Auto) Eos # (Auto) Baso # (Auto) WBC Differential Differential Comment Sodium 142 Potassium 3.7 Chloride 107 Carbon Dioxide 28.6 Anion Gap 6 BUN 19 H Creatinine 0.65 Estimated GFR Greater than 89 Random Glucose 113 H Calcium 8.4 L Magnesium Total Bilirubin 0.3 AST 95 H ALT 91 H Alkaline Phosphatase 101 Total Protein 6.3 L D Albumin 2.2 L - Imaging Imaging: ITS Impressions Abdomen/Pelvis CT 07/19/18 13:54 CONCLUSION: 1. Findings most consistent with cholelithiasis and acute cholecystitis. 2. 2.1 cm indeterminate density right adrenal mass. Adrenal mass protocol CT or MRI examination may be performed on an outpatient basis for further evaluation. 3. Moderate sigmoid diverticulosis without evidence for diverticulitis. 4. Marginal fluid filled loops of small bowel in the left upper abdomen which may reflect developing adynamic ileus. 5. Additional ancillary findings, as above. Chest X-Ray 07/19/18 16:12 CONCLUSION: No acute cardiopulmonary disease demonstrated. Abdomen X-Ray 07/22/18 00:00 CONCLUSION: NG tube in good position Assessment and Plan - Assessment (1) Acute cholecystitis due to biliary calculus Code(s): K80.00 - Calculus of gallbladder with acute cholecystitis without obstruction Status: Acute Plan: 62 year old male POD1 lap mara -Post op tachycardia--- Cardiology following--- now improved -NGT to LIWS -KUB reviewed -IVF -NPO; okay for a few ice chips -OOB as tolerated; okay to clamp NGT to ambulate -Leave in ISC for now As above Appears to have ileus, but improving Keep in ISC today The exam, history, and the medical decision-making described in the above note were completed with the assistance of the mid-level provider. I reviewed and agree with the findings presented. I attest that I had a [id number] encounter with the patient on the same day, and personally performed and documented my assessment and findings in the medical record.
--- NOTE | 2018-07-22 15:06 | XR ---
EXAM DATE: 07/22/2018 3:03 PM EST AGE/SEX: 62 years / Male INDICATIONS: Cough. CLINICAL DATA: This is the patient's initial encounter. Patient reports that signs and symptoms have been present for 4 - 6 days and indicates a pain score of 0/10. MEDICAL/SURGICAL HISTORY: . umbilical hernia . fusion, stimulator COMPARISON: [facility] [place], [place] ABDOMEN & PELVIS W CONTRAST, 07/19/2018. . FINDINGS: There is a nasogastric tube present. Incidental note is made of a spinal stimulator as well. There are small bilateral effusions. These are new compared to previous of 07/19/2018. The heart is normal in size. There are minimal atelectatic changes in the lung bases. CONCLUSION: Interval development of mild atelectatic changes in the lung bases with small bilateral effusions. Electronically signed by: Mj Chapin MD 07/22/2018 3:05 PM EST
--- NOTE | 2018-07-22 16:09 | ECG ---
Date Performed: 07/21/2018 Time Performed: 13:52:53 PTAGE: 62 years EKG: ATRIAL FLUTTER/TACHYCARDIA WITH RAPID VENTRICULAR RESPONSE POSSIBLE RIGHT VENTRICULAR CONDU CTION DELAY NONSPECIFIC ST & T-WAVE ABNORMALITY ABNORMAL RHYTHM ECG PREVIOUS TRACING : 07/21/2018 03.25 Since the previous tracing, no significant change noted DOCTOR: Barrera Aparicio Interpretating Date/Time 07/22/2018 16:05:34
--- NOTE | 2018-07-22 18:45 | ECHRPT ---
Indication: SOB, RAPID HB AFTER SURGERY CONCLUSIONS Very technically difficult study. Limited echocardiographic window assessment completed. The left ventricular systolic function is normal with an estimated ejection fraction in the range of 55-60%. There is mild tricuspid valve regurgitation. The estimated pulmonary arterial pressure is 51 mmHg. BP: / HR: Rhythm: Sinus MEASUREMENTS (Male / Female) Normal Values Technical Quality:Very technically difficult study DOPPLER AV Peak Velocity 165.0 cm/s AV Peak Gradient 10.9 mmHg AV Mean Gradient 5.0 mmHg AV Velocity Time Integral 27.1 cm LVOT Peak Velocity 124.0 cm/s LVOT Peak Gradient 6.2 mmHg LVOT Velocity Time Integral 25.6 cm Mitral E Point Velocity 84.4 cm/s Mitral A Point Velocity 70.6 cm/s Mitral E to A Ratio 1.2 LV E' Lateral Velocity 12.8 cm/s Mitral E to LV E' Lateral Ratio 6.6 LV E' Septal Velocity 9.9 cm/s Mitral E to LV E' Septal Ratio 8.5 TR Peak Velocity 320.0 cm/s TR Peak Gradient 41.0 mmHg Right Atrial Pressure 10.0 mmHg Pulmonary Artery Systolic Pressu 51.0 mmHg Right Ventricular Systolic Press 51.0 mmHg FINDINGS LEFT VENTRICLE The left ventricular systolic function is normal with an estimated ejection fraction in the range of 55-60%. No regional wall motion abnormalities are present. RIGHT VENTRICLE Normal right ventricular size and systolic function. LEFT ATRIUM The left atrial size is normal. RIGHT ATRIUM The right atrial size is normal. ATRIAL SEPTUM The interatrial septum not well visualized. AORTA The aortic root and proximal ascending aorta are not well visualized. MITRAL VALVE Structurally normal mitral valve. No mitral valve stenosis or regurgitation. AORTIC VALVE Trileaflet aortic valve. No aortic valve stenosis or regurgitation. TRICUSPID VALVE There is mild tricuspid valve regurgitation. The estimated pulmonary arterial pressure is 51 mmHg. PULMONARY VALVE The pulmonary valve is not well visualized. VESSELS The inferior vena cava was not well visualized. PERICARDIUM No pericardial effusion. Maciej Pretty (Electronically Signed) Final Date:22 July 2018 18:44
--- NOTE | 2018-07-22 22:15 | P.PNCA ---
Subjective Interval history: No events overnight Heart rates stable NG tube in place to suction Medications and Allergies Active Medications: Active Medications Acetaminophen (Tylenol) 650 mg PO Q4H PRN PRN Reason: Temp > 100.4 Al Hydroxide/Mg Hydroxide (Milk Of Magnaiden Liq) 30 ml PO Q12H PRN PRN Reason: Mild Constipation Enalaprilat (Vasotec Inj) 2.5 mg IV.PUSH Q6H PRN PRN Reason: SBP>180, DBP>100, HR>65 Piperacillin/Tazobactam/Dextrose (Zosyn 3.375 Gm Premix) 50 mls @ 100 mls/hr IV.SIG Q8H [facility] Last Admin: 07/22/18 16:44 Dose: 100 mls/hr Sodium Chloride (Ns Inj) 1,000 mls @ 125 mls/hr IV.CONT .Q8H [facility] Last Admin: 07/22/18 13:56 Dose: 125 mls/hr Metoprolol Tartrate (Lopressor Inj) 5 mg IV.PUSH Q6H [facility] Last Admin: 07/22/18 19:45 Dose: Not Given Morphine Sulfate (Morphine Inj) 4 mg IV.PUSH Q4H PRN PRN Reason: Pain 3 to 6 Last Admin: 07/22/18 19:44 Dose: 4 mg Morphine Sulfate (Oramorph Sr) 15 mg PO Q12H [facility] Last Admin: 07/22/18 15:52 Dose: Not Given Morphine Sulfate (Morphine Inj) 8 mg IV.PUSH Q4H PRN PRN Reason: Pain 7 to 10 Last Admin: 07/22/18 09:37 Dose: 8 mg Nicotine (Habitrol 21 Mg Patch.24 Hr) 1 patch T-DERMAL DAILY [facility] Last Admin: 07/22/18 08:58 Dose: 1 patch Ondansetron HCl (Zofran Inj) 4 mg IV.PUSH Q6H PRN PRN Reason: NAUSEA OR VOMITING Last Admin: 07/22/18 08:58 Dose: 4 mg Pantoprazole Sodium (Protonix Inj) 40 mg IV.PUSH DAILY [facility] Last Admin: 07/22/18 12:42 Dose: 40 mg Patch Removal (Remove Old Patch) 1 each T-DERMAL DAILY [facility] Sodium Chloride (Ns Flush) 2 ml IV.FLUSH PRN PRN PRN Reason: FLUSH AFTER USING IV ACCESS Last Admin: 07/20/18 21:55 Dose: 2 ml Allergies Allergy/AdvReac Type Severity Reaction Status Date / Time No Known Allergies Allergy Verified 07/19/18 13:54 Home Medications Medication Instructions Recorded Confirmed Type gabapentin 600 mg PO DAILY 07/19/18 07/19/18 History morphine 15 mg PO Q12H 07/19/18 07/19/18 History oxycodone-acetaminophen 1 tab PO Q4-6H PRN 07/19/18 07/19/18 History pravastatin 20 mg PO DAILY 07/19/18 07/19/18 History Physical Exam Vital signs: Vital Signs 07/21/18 22:45 07/21/18 22:51 07/21/18 23:00 Temperature 98.5 F 98.4 F Pulse Rate 79 88 90 Respiratory Rate 24 19 33 H Blood Pressure 124/66 124/73 122/67 Pulse Oximetry 92 L 93 L 07/22/18 00:00 07/22/18 01:00 07/22/18 02:00 Temperature 98.3 F Pulse Rate 81 78 81 Respiratory Rate 20 19 16 Blood Pressure 114/66 126/68 117/67 Pulse Oximetry 93 L 91 L 92 L 07/22/18 03:00 07/22/18 04:00 07/22/18 05:00 Temperature 98.6 F Pulse Rate 76 76 75 Respiratory Rate 24 25 H 23 Blood Pressure 119/67 121/67 128/69 Pulse Oximetry 93 L 93 L 93 L 07/22/18 06:00 07/22/18 07:00 07/22/18 07:17 Temperature Pulse Rate 72 65 Respiratory Rate 20 Blood Pressure 127/69 Pulse Oximetry 92 L 92 L 07/22/18 08:00 07/22/18 09:00 07/22/18 10:00 Temperature 98.9 F Pulse Rate 69 57 L 78 Respiratory Rate 22 22 38 H Blood Pressure 141/72 H 162/77 H 155/86 H Pulse Oximetry 91 L 92 L 93 L 07/22/18 11:00 07/22/18 12:00 07/22/18 13:00 Temperature 99.1 F Pulse Rate 64 59 L 66 Respiratory Rate 24 21 22 Blood Pressure 171/77 H 154/80 H 147/73 H Pulse Oximetry 93 L 93 L 94 L 07/22/18 14:00 07/22/18 15:00 07/22/18 16:00 Temperature 99.1 F Pulse Rate 74 65 66 Respiratory Rate 24 24 37 H Blood Pressure 162/74 H 145/80 H Pulse Oximetry 91 L 94 L 96 07/22/18 16:22 07/22/18 17:00 07/22/18 18:00 Temperature Pulse Rate 63 74 68 Respiratory Rate 44 H 24 23 Blood Pressure 152/75 H 154/79 H 154/77 H Pulse Oximetry 95 93 L 93 L 07/22/18 19:00 07/22/18 19:24 07/22/18 20:00 Temperature 98.9 F Pulse Rate 80 69 Respiratory Rate 20 Blood Pressure 148/81 H 147/75 H Pulse Oximetry 92 L 91 L 92 L Intake & Output 07/22/18 07/22/18 07/23/18 06:59 18:59 06:59 Intake Total 2221 / 2221 250 / 250 Output Total 3030 / 3030 2230 / 2230 Balance -809 / -809 -1979 / Weight 88.1 kg Intake: IV 1050 / 1050 50 / 50 NS Inj 1,000 ML @ 75 mls/hr IV. 1000 / 1000 CONT .[id number] [facility] Rx#:[id number] Zosyn 3.375 GM Premix 50 ML @ 50 / 50 50 / 50 100 mls/hr IV.SIG Q8H [facility] Rx#: [id number] Oral 720 / 720 200 / 200 Other 451 / 451 Output: Urine 1300 / 1300 1000 / 1000 Gastric Drainage 1700 / 1700 1200 / 1200 Right Nare Nasogastric Tube 1700 / 1700 1200 / 1200 Wound Drainage 30 / 30 30 / 30 # 1 Right Abdomen ALBINA Drain 30 / 30 30 / 30 Other: # Voids 2 Date of Last Bowel Movement 07/17/18 07/17/18 07/17/18 # Bowel Movements 0 Narrative: GENERAL: NAD, AAOx3 SKIN: Warm and dry. HEAD: Atraumatic. Normocephalic. EYES: Pupils equal and round. No scleral icterus. No injection or drainage. ENT: No nasal bleeding or discharge. Mucous membranes pink and moist. NECK: Trachea midline. No JVD. CARDIOVASCULAR: Regular rate and rhythm. RESPIRATORY: No accessory muscle use. Clear to auscultation. Breath sounds equal bilaterally. GASTROINTESTINAL: Abdomen soft, non-tender, nondistended. Hepatic and splenic margins not palpable. Incisions clean/dry/intact MUSCULOSKELETAL: Extremities without clubbing, cyanosis, or edema. No obvious deformities. NEUROLOGICAL: Awake and alert. No obvious cranial nerve deficits. Motor grossly within normal limits. Five out of 5 muscle strength in the arms and legs. Normal speech. PSYCHIATRIC: Appropriate mood and affect; insight and judgment normal. Results 07/22/18 05:20 07/22/18 05:20 Cardiac Enzymes 07/21/18 07/22/18 Range/Units 05:25 05:20 AST 28 95 H (15-37) U/L CBC 07/21/18 07/21/18 07/22/18 Range/Units 05:25 13:22 05:20 WBC 17.6 H 21.2 H 17.7 H (4.0-11.0) th/mm3 RBC 4.42 L 4.56 4.05 L (4.50-5.90) mil/mm3 Hgb 14.2 14.3 12.9 L (13.0-17.0) gm/dL Hct 40.6 43.7 37.6 L (39.0-51.0) % Plt Count 340 351 347 (150-450) th/mm3 Neut # (Auto) 14.8 H 17.5 H 14.5 H (1.8-7.7) th/mm3 Lymph # (Auto) 1.0 2.4 1.7 (1.0-4.8) th/mm3 Leake # (Auto) 1.7 H 1.3 H 1.5 H (0.0-0.9) th/mm3 Eos # (Auto) 0.1 0.0 0.0 (0.0-0.4) th/mm3 Baso # (Auto) 0.0 0.0 0.0 (0.0-0.2) th/mm3 Comprehensive Metabolic Panel 07/21/18 07/21/18 07/22/18 Range/Units 05:25 14:17 05:20 Sodium 141 142 (136-145) meq/L Potassium 3.8 4.2 3.7 (3.5-5.1) meq/L Chloride 108 H 107 (98-107) meq/L Carbon Dioxide 27.5 28.6 (21.0-32.0) meq/L BUN 21 H 19 H (7-18) mg/dL Creatinine 0.65 0.65 (0.60-1.30) mg/dL Calcium 8.8 8.4 L (8.5-10.1) mg/dL AST 28 95 H (15-37) U/L ALT 33 91 H (12-78) U/L Alkaline Phosphatase 114 101 (45-117) U/L Total Protein 7.1 6.3 L D (6.4-8.2) g/dL Albumin 2.5 L 2.2 L (3.4-5.0) g/dL Intake and Output 07/22/18 07/22/18 07/22/18 06:59 14:59 22:59 Intake Total 1650 / 1650 50 / 50 200 / 200 Output Total 2155 / 2155 2230 / 2230 Balance -505 / -505 50 / 50 -2029 / -2029 Intake: IV 1050 / 1050 50 / 50 NS Inj 1,000 ML @ 75 mls/hr IV. 1000 / 1000 CONT .[id number] [facility] Rx#:[id number] Zosyn 3.375 GM Premix 50 ML @ 50 / 50 50 / 50 100 mls/hr IV.SIG Q8H [facility] Rx#: [id number] Oral 600 / 600 200 / 200 Output: Urine 775 / 775 1000 / 1000 Gastric Drainage 1350 / 1350 1200 / 1200 Right Nare Nasogastric Tube 1350 / 1350 1200 / 1200 Wound Drainage 30 / 30 30 / 30 # 1 Right Abdomen ALBINA Drain 30 / 30 30 / 30 Other: # Voids 2 Date of Last Bowel Movement 07/17/18 07/17/18 07/17/18 # Bowel Movements 0 Weight 88.1 kg - Imaging and Cardiology Imaging: Impressions Abdomen X-Ray 07/22/18 00:00 CONCLUSION: NG tube in good position Chest X-Ray 07/22/18 00:00 CONCLUSION: Interval development of mild atelectatic changes in the lung bases with small bilateral effusions. Assessment and Plan - Assessment (1) AVNRT (AV lalo re-entry tachycardia) Code(s): I47.1 - Supraventricular tachycardia Status: Acute (2) Tobacco abuse Code(s): Z72.0 - Tobacco use Status: Acute (3) Acute cholecystitis due to biliary calculus Code(s): K80.00 - Calculus of gallbladder with acute cholecystitis without obstruction Status: Acute - Plan 1) Acute cholecystitis s/p cholecystectomy 2) SVT/AVNRT s/p pharmacologic cardioversion with Adenosine Heart rates stable in sinus rhythm Con't metoprolol IV Will switch to Metoprolol PO once on oral diet 3) Tobacco abuse Cessation 4) EF 55-60%
[2018-07-23] MEDS: Piperacil/Tazo 3.375 GM Premix 50 ML IV.SIG SCH ×3 (00:42→17:20)
[2018-07-23] MEDS: Morphine Inj 4 MG/ML Vial IV.PUSH PRN ×6 (00:55→22:12)
[2018-07-23] MEDS: Metoprolol Inj 5 MG/5 ML Vial IV.PUSH SCH ×4 (01:52→20:26)
[2018-07-23] MEDS: Morphine Sulfate 15 MG SR Tablet PO SCH ×2 (01:53→14:53)
[2018-07-23] MEDS: Sod Chloride 0.9% Inj 1,000 ML IV.CONT SCH (06:03)
[2018-07-23 07:01] LABS: Alanine Aminotransferase 90 U/L (12-78); Albumin 2.1 g/dL (3.4-5.0); Anion Gap 6 meq/L (5-15); Aspartate Aminotransferase 72 U/L (15-37); Blood Urea Nitrogen 20 mg/dL (7-18); Calcium 8.5 mg/dL (8.5-10.1); Carbon Dioxide 24.7 meq/L (21.0-32.0); Chloride 111 meq/L (98-107); Glomerular Filtration Rate Greater Than 89 mL/min (>89); Glucose,Random 91 mg/dL (74-106); Potassium 4.1 meq/L (3.5-5.1); Sodium 142 meq/L (136-145)
[2018-07-23 07:03] LABS: Baso # (Auto) 0.1 th/mm3 (0.0-0.2); Baso % (Auto) 0.6 % (0.0-2.0); Eos # (Auto) 0.3 th/mm3 (0.0-0.4); Eos % (Auto) 1.7 % (0.0-4.0); Hematocrit 39.9 % (39.0-51.0); Hemoglobin 13.7 gm/dL (13.0-17.0); Lymph # (Auto) 2.5 th/mm3 (1.0-4.8); Lymph % (Auto) 13.9 % (9.0-44.0); Mean Corpuscular HGB Conc 34.2 % (32.0-36.0); Mean Corpuscular Hemoglobin 31.5 pg (27.0-34.0); Mean Corpuscular Volume 92.3 fL (80.0-100.0); Mean Platelet Volume 7.8 fL (7.0-11.0); Mono # (Auto) 1.9 th/mm3 (0.0-0.9); Mono % (Auto) 10.2 % (0.0-8.0); Neut # (Auto) 13.5 th/mm3 (1.8-7.7); Neut % (Auto) 73.6 % (16.0-70.0); Platelet Count 283 th/mm3 (150-450); Red Blood Count 4.33 mil/mm3 (4.50-5.90); White Blood Count 18.3 th/mm3 (4.0-11.0)
[2018-07-23 07:04] LABS: Alkaline Phosphatase 97 U/L (45-117); Total Protein 6.1 g/dL (6.4-8.2)
[2018-07-23 08:14] LABS: Platelet Estimate Normal (Normal); Platelet Morphology Normal (Normal)
[2018-07-23] MEDS: Pantoprazole Inj 40 MG Vial IV.PUSH SCH (09:16)
--- NOTE | 2018-07-23 10:34 | P.PNGS ---
Subjective Interval history: Resting in bed C[place]AND Lopez at bedside No output from NGT overnight Passing gas now No further tachycardia Physical Exam Vital signs: Vital Signs 07/22/18 11:00 07/22/18 12:00 07/22/18 13:00 Temperature 99.1 F Pulse Rate 64 59 L 66 Respiratory Rate 24 21 22 Blood Pressure 171/77 H 154/80 H 147/73 H Pulse Oximetry 93 L 93 L 94 L 07/22/18 14:00 07/22/18 15:00 07/22/18 16:00 Temperature 99.1 F Pulse Rate 74 65 66 Respiratory Rate 24 24 37 H Blood Pressure 162/74 H 145/80 H Pulse Oximetry 91 L 94 L 96 07/22/18 16:22 07/22/18 17:00 07/22/18 18:00 Temperature Pulse Rate 63 74 68 Respiratory Rate 44 H 24 23 Blood Pressure 152/75 H 154/79 H 154/77 H Pulse Oximetry 95 93 L 93 L 07/22/18 19:00 07/22/18 19:24 07/22/18 20:00 Temperature 98.9 F Pulse Rate 80 69 Respiratory Rate 20 Blood Pressure 148/81 H 147/75 H Pulse Oximetry 92 L 91 L 92 L 07/22/18 21:00 07/22/18 22:00 07/22/18 23:00 Temperature Pulse Rate Respiratory Rate 20 18 18 Blood Pressure Pulse Oximetry 07/22/18 23:14 07/23/18 00:00 07/23/18 00:26 Temperature 98.9 F Pulse Rate 68 65 Respiratory Rate 18 16 Blood Pressure 156/74 H Pulse Oximetry 96 07/23/18 02:00 07/23/18 03:00 07/23/18 04:00 Temperature 98.9 F Pulse Rate 65 69 67 Respiratory Rate 18 Blood Pressure 140/73 Pulse Oximetry 97 07/23/18 05:00 07/23/18 05:43 Temperature Pulse Rate 67 67 Respiratory Rate Blood Pressure Pulse Oximetry Intake & Output 07/22/18 07/23/18 07/23/18 18:59 06:59 18:59 Intake Total 250 / 250 1150 / 1150 Output Total 2230 / 2230 810 / 810 Balance -1979 / -1979 340 / 340 Weight 88.7 kg Intake: IV 50 / 50 1100 / 1100 NS Inj 1,000 ML @ 125 mls/hr IV 1000 / 1000 .CONT .Q8H [facility] Rx#:[id number] Zosyn 3.375 GM Premix 50 ML @ 50 / 50 100 / 100 100 mls/hr IV.SIG Q8H [facility] Rx#: [id number] Oral 200 / 200 50 / 50 Output: Urine 1000 / 1000 800 / 800 Gastric Drainage 1200 / 1200 Right Nare Nasogastric Tube 1200 / 1200 Wound Drainage # 1 Right Abdomen ALBINA Drain Other: Date of Last Bowel Movement 07/17/18 07/17/18 Narrative: Alert and awake Abd: mildly distended---greatly improved from yesterday; lap sites c/d/i; bloody drainage in ALBINA drain Results - Labs 07/25/18 09:52 07/23/18 05:54 Laboratory Results - last 24 hr 07/23/18 07/23/18 05:54 05:54 WBC 18.3 H RBC 4.33 L Hgb 13.7 Hct 39.9 MCV 92.3 MCH 31.5 MCHC 34.2 RDW 13.0 Plt Count 283 MPV 7.8 Prelim Diff (Auto) Slide review pending Neut % (Auto) 73.6 H Lymph % (Auto) 13.9 Pratt % (Auto) 10.2 H Eos % (Auto) 1.7 Baso % (Auto) 0.6 Neut # (Auto) 13.5 H Lymph # (Auto) 2.5 Pratt # (Auto) 1.9 H Eos # (Auto) 0.3 Baso # (Auto) 0.1 WBC Differential . Diff Scan Auto diff confirmed Differential Comment . Platelet Estimate Normal Platelet Morphology Normal Sodium 142 Potassium 4.1 Chloride 111 H Carbon Dioxide 24.7 Anion Gap 6 BUN 20 H Creatinine 0.58 L Estimated GFR Greater than 89 Random Glucose 91 Calcium 8.5 Total Bilirubin 0.2 AST 72 H ALT 90 H Alkaline Phosphatase 97 Total Protein 6.1 L Albumin 2.1 L - Imaging Imaging: ITS Impressions Abdomen/Pelvis CT 07/19/18 13:54 CONCLUSION: 1. Findings most consistent with cholelithiasis and acute cholecystitis. 2. 2.1 cm indeterminate density right adrenal mass. Adrenal mass protocol CT or MRI examination may be performed on an outpatient basis for further evaluation. 3. Moderate sigmoid diverticulosis without evidence for diverticulitis. 4. Marginal fluid filled loops of small bowel in the left upper abdomen which may reflect developing adynamic ileus. 5. Additional ancillary findings, as above. Abdomen X-Ray 07/22/18 00:00 CONCLUSION: NG tube in good position Chest X-Ray 07/22/18 00:00 CONCLUSION: Interval development of mild atelectatic changes in the lung bases with small bilateral effusions. Assessment and Plan - Plan 62 year old male POD2 lap mara; post op tachycardia; post op nausea/vomiting -Clamp NGT -Start sips of clears -OOB -Wean oxygen as tolerated -Will likely be able to DC NGT later if no nausea/vomiting -CLEVELAND Lopez at bedside Improved, but still critical Ileus resolving Continue pulmonary toilet The exam, history, and the medical decision-making described in the above note were completed with the assistance of the mid-level provider. I reviewed and agree with the findings presented. I attest that I had a [id number] encounter with the patient on the same day, and personally performed and documented my assessment and findings in the medical record.
--- NOTE | 2018-07-23 11:33 | P.PNIM ---
Subjective Interval history: Patient says he feels better today. His abdominal pain has improved. He still gets short of breath when he begins to move around. Physical Exam Vital signs: Vital Signs 07/22/18 12:00 07/22/18 13:00 07/22/18 14:00 Temperature 99.1 F Pulse Rate 59 L 66 74 Respiratory Rate 21 22 24 Blood Pressure 154/80 H 147/73 H 162/74 H Pulse Oximetry 93 L 94 L 91 L 07/22/18 15:00 07/22/18 16:00 07/22/18 16:22 Temperature 99.1 F Pulse Rate 65 66 63 Respiratory Rate 24 37 H 44 H Blood Pressure 145/80 H 152/75 H Pulse Oximetry 94 L 96 95 07/22/18 17:00 07/22/18 18:00 07/22/18 19:00 Temperature Pulse Rate 74 68 80 Respiratory Rate 24 23 20 Blood Pressure 154/79 H 154/77 H 148/81 H Pulse Oximetry 93 L 93 L 92 L 07/22/18 19:24 07/22/18 20:00 07/22/18 21:00 Temperature 98.9 F Pulse Rate 69 Respiratory Rate 20 Blood Pressure 147/75 H Pulse Oximetry 91 L 92 L 07/22/18 22:00 07/22/18 23:00 07/22/18 23:14 Temperature Pulse Rate Respiratory Rate 18 18 18 Blood Pressure Pulse Oximetry 07/23/18 00:00 07/23/18 00:26 07/23/18 02:00 Temperature 98.9 F Pulse Rate 68 65 65 Respiratory Rate 16 Blood Pressure 156/74 H Pulse Oximetry 96 07/23/18 03:00 07/23/18 04:00 07/23/18 05:00 Temperature 98.9 F Pulse Rate 69 67 67 Respiratory Rate 18 Blood Pressure 140/73 Pulse Oximetry 97 07/23/18 05:43 Temperature Pulse Rate 67 Respiratory Rate Blood Pressure Pulse Oximetry Intake & Output 07/22/18 07/23/18 07/23/18 18:59 06:59 18:59 Intake Total 250 / 250 1150 / 1150 Output Total 2230 / 2230 810 / 810 Balance -1979 / -1979 340 / 340 Weight 88.7 kg Intake: IV 50 / 50 1100 / 1100 NS Inj 1,000 ML @ 125 mls/hr IV 1000 / 1000 .CONT .Q8H [facility] Rx#:[id number] Zosyn 3.375 GM Premix 50 ML @ 50 / 50 100 / 100 100 mls/hr IV.SIG Q8H [facility] Rx#: [id number] Oral 200 / 200 50 / 50 Output: Urine 1000 / 1000 800 / 800 Gastric Drainage 1200 / 1200 Right Nare Nasogastric Tube 1200 / 1200 Wound Drainage / # 1 Right Abdomen ALBINA Drain Other: Date of Last Bowel Movement 07/17/18 07/17/18 Narrative: General patient says he feels much better today. His abdominal pain has improved. He still gets short of breath when he begins to move around. HEENT extraocular movements are intact, clear oropharyngeal mucosa, NG tube in place. Cardiovascular S1-S2 Respiratory bibasilar crackles. Abdomen soft, distended, hypoactive bowel sounds, bloody drainage from abdominal drain status post lap mara Extremities no edema 2+ distal pulses in bilateral upper and lower extremities Neuro patient moves all 4 extremities, sensation is intact bilaterally Results - Labs CBC & Chem 7: 07/23/18 05:54 07/23/18 05:54 Laboratory Results - last 24 hr 07/23/18 07/23/18 05:54 05:54 WBC 18.3 H RBC 4.33 L Hgb 13.7 Hct 39.9 MCV 92.3 MCH 31.5 MCHC 34.2 RDW 13.0 Plt Count 283 MPV 7.8 Prelim Diff (Auto) Slide review pending Neut % (Auto) 73.6 H Lymph % (Auto) 13.9 Darke % (Auto) 10.2 H Eos % (Auto) 1.7 Baso % (Auto) 0.6 Neut # (Auto) 13.5 H Lymph # (Auto) 2.5 Darke # (Auto) 1.9 H Eos # (Auto) 0.3 Baso # (Auto) 0.1 WBC Differential . Diff Scan Auto diff confirmed Differential Comment . Platelet Estimate Normal Platelet Morphology Normal Sodium 142 Potassium 4.1 Chloride 111 H Carbon Dioxide 24.7 Anion Gap 6 BUN 20 H Creatinine 0.58 L Estimated GFR Greater than 89 Random Glucose 91 Calcium 8.5 Total Bilirubin 0.2 AST 72 H ALT 90 H Alkaline Phosphatase 97 Total Protein 6.1 L Albumin 2.1 L Microbiology 07/20/18 10:55 Clean Catch Urine Urine Culture - Final No growth in 48 hours - Imaging Impressions Abdomen X-Ray 07/22/18 00:00 CONCLUSION: NG tube in good position Chest X-Ray 07/22/18 00:00 CONCLUSION: Interval development of mild atelectatic changes in the lung bases with small bilateral effusions. Assessment and Plan - Plan This patient is a 62-year-old man with COPD, dyslipidemia. The patient presented with findings consistent with acute cholecystitis. Patient was admitted for treatment and during the hospitalization was found to be in SVT which was treated with adenosine. 1. Sepsis secondary to acute cholecystitis. Patient febrile on admission, has not been febrile since then. WBC count downtrending, still elevated at 18. Patient is status post cholecystectomy. Drain still in place. We will follow up with surgery regarding management of the drain. On IV Zosyn. 2. Ileus Patient is now passing gas. Bowel sounds are present. Patient was up and moving around today. Started on PO liquid diet. NG tube in place to low wall suction, will likely be removed today. Will discuss with surgery. Monitor electrolyte and replace as needed. Continue Protonix IV, will switch to PO. 3. Acute hypoxic respiratory failure Patient is currently on supplemental oxygen with 4 L of oxygen. CXR from yesterday showed small b/l effusions. Will stop IVF today as patient is now tolerating feeds and passing gas. Keep O2 sat above 92%. We will try to wean off of oxygen. If no improvement patient may need some IV lasix. We will continue to monitor closely. 4. Dyslipidemia Patient can resume medications after he is able to tolerate a p.o. diet. 5. SVT Patient was given adenosine two days ago and is now currently in normal sinus rhythm. Heart rate is currently in the low 60s. Continue metoprolol IV as per cardiology's recommendations. If patient continues to tolerate po feeds today we will switch to PO Beta olivia.
--- NOTE | 2018-07-23 16:42 | P.PNCA ---
Subjective Interval history: No events overnight Heart rates stable NG tube out Medications and Allergies Active Medications: Active Medications Acetaminophen (Tylenol) 650 mg PO Q4H PRN PRN Reason: Temp > 100.4 Al Hydroxide/Mg Hydroxide (Milk Of Darlyn Sutton) 30 ml PO Q12H PRN PRN Reason: Mild Constipation Enalaprilat (Vasotec Inj) 2.5 mg IV.PUSH Q6H PRN PRN Reason: SBP>180, DBP>100, HR>65 Piperacillin/Tazobactam/Dextrose (Zosyn 3.375 Gm Premix) 50 mls @ 100 mls/hr IV.SIG Q8H [facility] Last Infusion: 07/23/18 10:30 Dose: Infused Metoprolol Tartrate (Lopressor Inj) 5 mg IV.PUSH Q6H [facility] Last Admin: 07/23/18 14:53 Dose: 5 mg Morphine Sulfate (Morphine Inj) 4 mg IV.PUSH Q4H PRN PRN Reason: Pain 3 to 6 Last Admin: 07/23/18 06:06 Dose: 4 mg Morphine Sulfate (Oramorph Sr) 15 mg PO Q12H [facility] Last Admin: 07/23/18 14:53 Dose: 15 mg Morphine Sulfate (Morphine Inj) 8 mg IV.PUSH Q4H PRN PRN Reason: Pain 7 to 10 Last Admin: 07/23/18 10:28 Dose: 8 mg Nicotine (Habitrol 21 Mg Patch.24 Hr) 1 patch T-DERMAL DAILY [facility] Last Admin: 07/23/18 09:15 Dose: 1 patch Ondansetron HCl (Zofran Inj) 4 mg IV.PUSH Q6H PRN PRN Reason: NAUSEA OR VOMITING Last Admin: 07/22/18 08:58 Dose: 4 mg Pantoprazole Sodium (Protonix Inj) 40 mg IV.PUSH DAILY [facility] Last Admin: 07/23/18 09:16 Dose: 40 mg Patch Removal (Remove Old Patch) 1 each T-DERMAL DAILY [facility] Last Admin: 07/23/18 09:17 Dose: 1 each Sodium Chloride (Ns Flush) 2 ml IV.FLUSH PRN PRN PRN Reason: FLUSH AFTER USING IV ACCESS Last Admin: 07/23/18 09:16 Dose: 2 ml Allergies Allergy/AdvReac Type Severity Reaction Status Date / Time No Known Allergies Allergy Verified 07/19/18 13:54 Home Medications Medication Instructions Recorded Confirmed Type gabapentin 600 mg PO DAILY 07/19/18 07/19/18 History morphine 15 mg PO Q12H 07/19/18 07/19/18 History oxycodone-acetaminophen 1 tab PO Q4-6H PRN 07/19/18 07/19/18 History pravastatin 20 mg PO DAILY 07/19/18 07/19/18 History Physical Exam Vital signs: Vital Signs 07/22/18 17:00 07/22/18 18:00 07/22/18 19:00 Temperature Pulse Rate 74 68 80 Respiratory Rate 24 23 20 Blood Pressure 154/79 H 154/77 H 148/81 H Pulse Oximetry 93 L 93 L 92 L 07/22/18 19:24 07/22/18 20:00 07/22/18 21:00 Temperature 98.9 F Pulse Rate 69 Respiratory Rate 20 Blood Pressure 147/75 H Pulse Oximetry 91 L 92 L 07/22/18 22:00 07/22/18 23:00 07/22/18 23:14 Temperature Pulse Rate Respiratory Rate 18 18 18 Blood Pressure Pulse Oximetry 07/23/18 00:00 07/23/18 00:26 07/23/18 02:00 Temperature 98.9 F Pulse Rate 68 65 65 Respiratory Rate 16 Blood Pressure 156/74 H Pulse Oximetry 96 07/23/18 03:00 07/23/18 04:00 07/23/18 05:00 Temperature 98.9 F Pulse Rate 69 67 67 Respiratory Rate 18 Blood Pressure 140/73 Pulse Oximetry 97 07/23/18 05:43 07/23/18 07:00 07/23/18 08:00 Temperature 98.5 F Pulse Rate 67 69 81 Respiratory Rate 24 23 Blood Pressure 144/77 H Pulse Oximetry 96 95 07/23/18 08:08 07/23/18 09:00 07/23/18 10:00 Temperature Pulse Rate 75 72 69 Respiratory Rate 24 22 24 Blood Pressure 146/83 H 144/69 H 128/74 Pulse Oximetry 95 96 96 07/23/18 10:30 07/23/18 11:00 07/23/18 11:33 Temperature Pulse Rate 84 84 Respiratory Rate 17 24 Blood Pressure Pulse Oximetry 95 07/23/18 11:43 07/23/18 12:00 07/23/18 13:00 Temperature 98.8 F Pulse Rate 70 79 Respiratory Rate 25 H 25 H 27 H Blood Pressure 135/76 127/70 129/71 Pulse Oximetry 94 L 93 L 93 L 07/23/18 14:00 07/23/18 14:02 07/23/18 14:29 Temperature Pulse Rate 74 74 73 Respiratory Rate 25 H 26 H Blood Pressure 153/80 H Pulse Oximetry 93 L 96 07/23/18 15:00 07/23/18 15:30 Temperature Pulse Rate 63 Respiratory Rate 22 19 Blood Pressure 135/75 Pulse Oximetry 93 L Intake & Output 07/22/18 07/23/18 07/23/18 18:59 06:59 18:59 Intake Total 250 / 250 1150 / 1150 450 / 450 Output Total 2230 / 2230 810 / 810 Balance -1979 / 340 / 340 450 / 450 Weight 88.7 kg Intake: IV 50 / 50 1100 / 1100 450 / 450 NS Inj 1,000 ML @ 125 mls/hr IV 1000 / 1000 400 / 400 .CONT .Q8H [facility] Rx#:[id number] Zosyn 3.375 GM Premix 50 ML @ 50 / 50 100 / 100 50 / 50 100 mls/hr IV.SIG Q8H [facility] Rx#: [id number] Oral 200 / 200 50 / 50 Output: Urine 1000 / 1000 800 / 800 Gastric Drainage 1200 / 1200 Right Nare Nasogastric Tube 1200 / 1200 Wound Drainage # 1 Right Abdomen ALBINA Drain Other: Date of Last Bowel Movement 07/17/18 07/17/18 Narrative: General patient says he feels much better today. His abdominal pain has improved. He still gets short of breath when he begins to move around. HEENT extraocular movements are intact, clear oropharyngeal mucosa, NG tube in place. Cardiovascular S1-S2 Respiratory CTA B/L Abdomen soft, distended, hypoactive bowel sounds, bloody drainage from abdominal drain status post lap mara Extremities no edema 2+ distal pulses in bilateral upper and lower extremities Neuro patient moves all 4 extremities, sensation is intact bilaterally Results 07/23/18 05:54 07/23/18 05:54 Cardiac Enzymes 07/22/18 07/23/18 Range/Units 05:20 05:54 AST 95 H 72 H (15-37) U/L CBC 07/22/18 07/23/18 Range/Units 05:20 05:54 WBC 17.7 H 18.3 H (4.0-11.0) th/mm3 RBC 4.05 L 4.33 L (4.50-5.90) mil/mm3 Hgb 12.9 L 13.7 (13.0-17.0) gm/dL Hct 37.6 L 39.9 (39.0-51.0) % Plt Count 347 283 (150-450) th/mm3 Neut # (Auto) 14.5 H 13.5 H (1.8-7.7) th/mm3 Lymph # (Auto) 1.7 2.5 (1.0-4.8) th/mm3 [place] # (Auto) 1.5 H 1.9 H (0.0-0.9) th/mm3 Eos # (Auto) 0.0 0.3 (0.0-0.4) th/mm3 Baso # (Auto) 0.0 0.1 (0.0-0.2) th/mm3 Comprehensive Metabolic Panel 07/22/18 07/23/18 Range/Units 05:20 05:54 Sodium 142 142 (136-145) meq/L Potassium 3.7 4.1 (3.5-5.1) meq/L Chloride 107 111 H (98-107) meq/L Carbon Dioxide 28.6 24.7 (21.0-32.0) meq/L BUN 19 H 20 H (7-18) mg/dL Creatinine 0.65 0.58 L (0.60-1.30) mg/dL Calcium 8.4 L 8.5 (8.5-10.1) mg/dL AST 95 H 72 H (15-37) U/L ALT 91 H 90 H (12-78) U/L Alkaline Phosphatase 101 97 (45-117) U/L Total Protein 6.3 L D 6.1 L (6.4-8.2) g/dL Albumin 2.2 L 2.1 L (3.4-5.0) g/dL Intake and Output 07/23/18 07/23/18 07/23/18 06:59 14:59 22:59 Intake Total 100 / 100 450 / 450 Output Total 810 / 810 Balance -710 / -710 450 / 450 Intake: IV 50 / 50 450 / 450 NS Inj 1,000 ML @ 125 mls/hr IV 400 / 400 .CONT .Q8H [facility] Rx#:[id number] Zosyn 3.375 GM Premix 50 ML @ 50 / 50 50 / 50 100 mls/hr IV.SIG Q8H [facility] Rx#: [id number] Oral 50 / 50 Output: Urine 800 / 800 Wound Drainage # 1 Right Abdomen ALBINA Drain Other: Date of Last Bowel Movement 07/17/18 Weight 88.7 kg - Imaging and Cardiology Imaging: Impressions Abdomen X-Ray 07/22/18 00:00 CONCLUSION: NG tube in good position Chest X-Ray 07/22/18 00:00 CONCLUSION: Interval development of mild atelectatic changes in the lung bases with small bilateral effusions. Assessment and Plan - Assessment (1) AVNRT (AV lalo re-entry tachycardia) Code(s): I47.1 - Supraventricular tachycardia Status: Acute (2) Tobacco abuse Code(s): Z72.0 - Tobacco use Status: Acute (3) Acute cholecystitis due to biliary calculus Code(s): K80.00 - Calculus of gallbladder with acute cholecystitis without obstruction Status: Acute - Plan 1) Acute cholecystitis s/p cholecystectomy 2) SVT/AVNRT s/p pharmacologic cardioversion with Adenosine Heart rates stable in sinus rhythm Con't metoprolol IV Will switch to Metoprolol PO once on full diet 3) Tobacco abuse Cessation 4) EF 55-60%
[2018-07-24] MEDS: Morphine Sulfate 15 MG SR Tablet PO SCH ×2 (01:55→13:58)
[2018-07-24] MEDS: Piperacil/Tazo 3.375 GM Premix 50 ML IV.SIG SCH ×3 (01:56→17:26)
[2018-07-24] MEDS: Metoprolol Inj 5 MG/5 ML Vial IV.PUSH SCH ×4 (01:56→20:27)
[2018-07-24] MEDS: Morphine Inj 4 MG/ML Vial IV.PUSH PRN ×5 (06:47→23:11)
[2018-07-24] MEDS: Pantoprazole Inj 40 MG Vial IV.PUSH SCH (08:35)
--- NOTE | 2018-07-24 10:48 | P.PNGS ---
Subjective Interval history: Resting in bed Has been OOB +BM last night Physical Exam Vital signs: Vital Signs 07/23/18 11:00 07/23/18 11:33 07/23/18 11:43 Temperature Pulse Rate 84 84 Respiratory Rate 24 25 H Blood Pressure 135/76 Pulse Oximetry 95 94 L 07/23/18 12:00 07/23/18 13:00 07/23/18 14:00 Temperature 98.8 F Pulse Rate 70 79 74 Respiratory Rate 25 H 27 H Blood Pressure 127/70 129/71 Pulse Oximetry 93 L 93 L 07/23/18 14:02 07/23/18 14:29 07/23/18 15:00 Temperature Pulse Rate 74 73 63 Respiratory Rate 25 H 26 H 22 Blood Pressure 153/80 H 135/75 Pulse Oximetry 93 L 96 93 L 07/23/18 15:30 07/23/18 16:00 07/23/18 17:00 Temperature 98.4 F Pulse Rate 68 77 Respiratory Rate 19 22 25 H Blood Pressure 136/75 156/84 H Pulse Oximetry 94 L 96 07/23/18 17:19 07/23/18 18:00 07/23/18 18:24 Temperature Pulse Rate 68 Respiratory Rate 19 21 26 H Blood Pressure 148/73 H Pulse Oximetry 95 07/23/18 19:00 07/23/18 20:00 07/23/18 20:15 Temperature Pulse Rate 75 73 Respiratory Rate 24 22 Blood Pressure 155/71 H 142/83 H Pulse Oximetry 92 L 91 L 92 L 07/23/18 21:00 07/23/18 22:00 07/23/18 22:15 Temperature Pulse Rate 70 71 Respiratory Rate 24 21 20 Blood Pressure 134/79 150/78 H Pulse Oximetry 92 L 92 L 07/23/18 23:00 07/24/18 00:00 07/24/18 01:00 Temperature 98.4 F Pulse Rate 71 68 71 Respiratory Rate 18 19 22 Blood Pressure 146/79 H 135/69 147/81 H Pulse Oximetry 93 L 91 L 91 L 07/24/18 02:00 07/24/18 03:00 07/24/18 04:00 Temperature Pulse Rate 67 70 76 Respiratory Rate 19 18 36 H Blood Pressure 135/74 145/79 H 129/82 Pulse Oximetry 91 L 92 L 91 L 07/24/18 05:00 07/24/18 06:00 07/24/18 07:56 Temperature Pulse Rate 75 65 Respiratory Rate 24 19 18 Blood Pressure 130/80 131/72 Pulse Oximetry 93 L 92 L Intake & Output 07/23/18 07/24/18 07/24/18 18:59 06:59 18:59 Intake Total 930 / 930 820 / 820 Output Total 900 / 900 1005 / 1005 Balance 30 / 30 -185 / -185 Weight 89.4 kg Intake: IV 450 / 450 100 / 100 NS Inj 1,000 ML @ 125 mls/hr IV 400 / 400 .CONT .Q8H [facility] Rx#:[id number] Zosyn 3.375 GM Premix 50 ML @ 50 / 50 100 / 100 100 mls/hr IV.SIG Q8H [facility] Rx#: [id number] Oral 480 / 480 720 / 720 Output: Urine 900 / 900 1000 / 1000 Wound Drainage 5 / 5 # 1 Right Abdomen ALBINA Drain 5 / 5 Other: # Voids 3 Date of Last Bowel Movement 07/17/18 07/24/18 # Bowel Movements 0 1 Narrative: Alert and awake Resp: CTAB Abd: soft; non tender; lap sites c/d/i; ALBINA with thin blood tinged drainage Results - Labs 07/25/18 09:52 07/23/18 05:54 - Imaging Imaging: ITS Impressions Abdomen/Pelvis CT 07/19/18 13:54 CONCLUSION: 1. Findings most consistent with cholelithiasis and acute cholecystitis. 2. 2.1 cm indeterminate density right adrenal mass. Adrenal mass protocol CT or MRI examination may be performed on an outpatient basis for further evaluation. 3. Moderate sigmoid diverticulosis without evidence for diverticulitis. 4. Marginal fluid filled loops of small bowel in the left upper abdomen which may reflect developing adynamic ileus. 5. Additional ancillary findings, as above. Abdomen X-Ray 07/22/18 00:00 CONCLUSION: NG tube in good position Chest X-Ray 07/22/18 00:00 CONCLUSION: Interval development of mild atelectatic changes in the lung bases with small bilateral effusions. Assessment and Plan - Plan 62 year old male POD3 lap mara; post op tachycardia; post op nausea/vomiting -Advance to regular soft diet -OOB -Wean oxygen as tolerated -IS -Okay to restart all home meds from GS standpoint--will discuss with Primary team -Okay to move out of ISC to 7N from Surgical standpoint ALBINA drain output decreased, serosanguinous Stable, improved The exam, history, and the medical decision-making described in the above note were completed with the assistance of the mid-level provider. I reviewed and agree with the findings presented. I attest that I had a [id number] encounter with the patient on the same day, and personally performed and documented my assessment and findings in the medical record.
[2018-07-24] MEDS: Enoxaparin Inj 40 MG/0.4 ML Syringe SQ SCH (16:15)
--- NOTE | 2018-07-24 16:28 | P.PNIM ---
Subjective Interval history: Patient feels much better today. His abdominal pain and shortness of breath have improved. Physical Exam Vital signs: Vital Signs 07/23/18 17:00 07/23/18 17:19 07/23/18 18:00 Temperature Pulse Rate 77 68 Respiratory Rate 25 H 19 21 Blood Pressure 156/84 H 148/73 H Pulse Oximetry 96 95 07/23/18 18:24 07/23/18 19:00 07/23/18 20:00 Temperature Pulse Rate 75 73 Respiratory Rate 26 H 24 22 Blood Pressure 155/71 H 142/83 H Pulse Oximetry 92 L 91 L 07/23/18 20:15 07/23/18 21:00 07/23/18 22:00 Temperature Pulse Rate 70 71 Respiratory Rate 24 21 Blood Pressure 134/79 150/78 H Pulse Oximetry 92 L 92 L 92 L 07/23/18 22:15 07/23/18 23:00 07/24/18 00:00 Temperature 98.4 F Pulse Rate 71 68 Respiratory Rate 20 18 19 Blood Pressure 146/79 H 135/69 Pulse Oximetry 93 L 91 L 07/24/18 01:00 07/24/18 02:00 07/24/18 03:00 Temperature Pulse Rate 71 67 70 Respiratory Rate 22 19 18 Blood Pressure 147/81 H 135/74 145/79 H Pulse Oximetry 91 L 91 L 92 L 07/24/18 04:00 07/24/18 05:00 07/24/18 06:00 Temperature Pulse Rate 76 75 65 Respiratory Rate 36 H 24 19 Blood Pressure 129/82 130/80 131/72 Pulse Oximetry 91 L 93 L 92 L 07/24/18 07:56 Temperature Pulse Rate Respiratory Rate 18 Blood Pressure Pulse Oximetry Intake & Output 07/23/18 07/24/18 07/24/18 18:59 06:59 18:59 Intake Total 930 / 930 820 / 820 50 / 50 Output Total 900 / 900 1005 / 1005 Balance 30 / 30 -185 / -185 50 / 50 Weight 89.4 kg Intake: IV 450 / 450 100 / 100 50 / 50 NS Inj 1,000 ML @ 125 mls/hr IV 400 / 400 .CONT .Q8H [facility] Rx#:[id number] Zosyn 3.375 GM Premix 50 ML @ 50 / 50 100 / 100 50 / 50 100 mls/hr IV.SIG Q8H [facility] Rx#: [id number] Oral 480 / 480 720 / 720 Output: Urine 900 / 900 1000 / 1000 Wound Drainage 5 / # 1 Right Abdomen ALBINA Drain Other: # Voids 3 Date of Last Bowel Movement 07/17/18 07/24/18 07/23/18 # Bowel Movements 0 1 Narrative: General patient says he feels much better today. HEENT extraocular movements are intact, clear oropharyngeal mucosa, NG tube in place. Cardiovascular S1-S2 Respiratory clear to auscultation bilaterally Abdomen soft, distended, hypoactive bowel sounds, bloody drainage from abdominal drain Extremities no edema 2+ distal pulses in bilateral upper and lower extremities Neuro patient moves all 4 extremities, sensation is intact bilaterally Results - Labs CBC & Chem 7: 07/23/18 05:54 07/23/18 05:54 Assessment and Plan - Plan This patient is a 62-year-old man with COPD, dyslipidemia. The patient presented with findings consistent with acute cholecystitis. Patient was admitted for treatment and during the hospitalization was found to be in SVT which was treated with adenosine. 1. Sepsis secondary to acute cholecystitis. Patient febrile on admission, has not been febrile since then. WBC count downtrending, still elevated at 18 as of yesterday. We will follow- up a.m. labs. Patient is status post cholecystectomy. Postop day 3. Surgery following the patient. We will follow up with surgery regarding management of the drain. On IV Zosyn. 2. Ileus Patient is now passing gas. Bowel sounds are present. Patient was up and moving around today. NG tube removed, patient now tolerating p.o. diet. Monitor electrolyte and replace as needed. Continue Protonix Will ambulate the patient, he will be moved out of the ICU. 3. Acute hypoxic respiratory failure Patient is now on room air. CXR from yesterday showed small b/l effusions. Will stop IVF today as patient is now tolerating feeds and passing gas. Keep O2 sat above 92%. Patient's acute hypoxic respiratory failure has resolved. 4. Dyslipidemia Statin restarted PO 5. SVT Patient was given adenosine two days ago and is now currently in normal sinus rhythm. Heart rate is currently in the low 60s. Currently on IV metoprolol by cardiology. Will switch over to PO, will await recs from cardiology. Patient is ambulatory, no pharmacotherapy for DVT prophylaxis as the patient is ambulating.
[2018-07-24] MEDS: Gabapentin 300 MG Capsule PO SCH (17:26)
--- NOTE | 2018-07-24 23:46 | P.PNCA ---
Subjective Interval history: No events overnight No complaints Medications and Allergies Active Medications: Active Medications Acetaminophen (Tylenol) 650 mg PO Q4H PRN PRN Reason: Temp > 100.4 Al Hydroxide/Mg Hydroxide (Milk Of Magnaiden Liq) 30 ml PO Q12H PRN PRN Reason: Mild Constipation Enalaprilat (Vasotec Inj) 2.5 mg IV.PUSH Q6H PRN PRN Reason: SBP>180, DBP>100, HR>65 Enoxaparin Sodium (Lovenox Inj) 40 mg SQ DAILY [facility] Last Admin: 07/24/18 16:15 Dose: 40 mg Gabapentin (Neurontin) 600 mg PO DAILY [facility] Last Admin: 07/24/18 17:26 Dose: 600 mg Piperacillin/Tazobactam/Dextrose (Zosyn 3.375 Gm Premix) 50 mls @ 100 mls/hr IV.SIG Q8H [facility] Last Infusion: 07/24/18 17:59 Dose: Infused Metoprolol Tartrate (Lopressor) 25 mg PO BID [facility] Morphine Sulfate (Morphine Inj) 4 mg IV.PUSH Q4H PRN PRN Reason: Pain 3 to 6 Last Admin: 07/23/18 06:06 Dose: 4 mg Morphine Sulfate (Oramorph Sr) 15 mg PO Q12H [facility] Last Admin: 07/24/18 13:58 Dose: 15 mg Morphine Sulfate (Morphine Inj) 8 mg IV.PUSH Q4H PRN PRN Reason: Pain 7 to 10 Last Admin: 07/24/18 23:11 Dose: 8 mg Nicotine (Habitrol 21 Mg Patch.24 Hr) 1 patch T-DERMAL DAILY [facility] Last Admin: 07/24/18 08:34 Dose: 1 patch Ondansetron HCl (Zofran Inj) 4 mg IV.PUSH Q6H PRN PRN Reason: NAUSEA OR VOMITING Last Admin: 07/22/18 08:58 Dose: 4 mg Pantoprazole Sodium (Protonix Inj) 40 mg IV.PUSH DAILY [facility] Last Admin: 07/24/18 08:35 Dose: 40 mg Patch Removal (Remove Old Patch) 1 each T-DERMAL DAILY [facility] Last Admin: 07/24/18 08:35 Dose: 1 each Pravastatin Sodium (Pravachol) 20 mg PO HS [facility] Last Admin: 07/24/18 20:27 Dose: 20 mg Sodium Chloride (Ns Flush) 2 ml IV.FLUSH PRN PRN PRN Reason: FLUSH AFTER USING IV ACCESS Last Admin: 07/23/18 09:16 Dose: 2 ml Allergies Allergy/AdvReac Type Severity Reaction Status Date / Time No Known Allergies Allergy Verified 07/19/18 13:54 Home Medications Medication Instructions Recorded Confirmed Type gabapentin 600 mg PO DAILY 07/19/18 07/19/18 History morphine 15 mg PO Q12H 07/19/18 07/19/18 History oxycodone-acetaminophen 1 tab PO Q4-6H PRN 07/19/18 07/19/18 History pravastatin 20 mg PO DAILY 07/19/18 07/19/18 History Physical Exam Vital signs: Vital Signs 07/24/18 00:00 07/24/18 01:00 07/24/18 02:00 Temperature 98.4 F Pulse Rate 68 71 67 Respiratory Rate 19 22 19 Blood Pressure 135/69 147/81 H 135/74 Pulse Oximetry 91 L 91 L 91 L 07/24/18 03:00 07/24/18 04:00 07/24/18 05:00 Temperature Pulse Rate 70 76 75 Respiratory Rate 18 36 H 24 Blood Pressure 145/79 H 129/82 130/80 Pulse Oximetry 92 L 91 L 93 L 07/24/18 06:00 07/24/18 07:56 07/24/18 08:00 Temperature 97.9 F Pulse Rate 65 67 Respiratory Rate 19 18 20 Blood Pressure 131/72 134/77 Pulse Oximetry 92 L 91 L 07/24/18 09:00 07/24/18 10:00 07/24/18 11:00 Temperature Pulse Rate 64 69 81 Respiratory Rate 24 23 Blood Pressure 132/74 130/75 151/86 H Pulse Oximetry 93 L 94 L 92 L 07/24/18 12:00 07/24/18 13:00 07/24/18 14:00 Temperature 97.8 F Pulse Rate 79 68 83 Respiratory Rate 33 H 20 26 H Blood Pressure 141/79 H 127/69 157/74 H Pulse Oximetry 93 L 90 L 92 L 07/24/18 15:00 07/24/18 16:00 07/24/18 17:00 Temperature 97.9 F Pulse Rate 65 64 72 Respiratory Rate 19 21 Blood Pressure 123/73 139/74 Pulse Oximetry 92 L 91 L 07/24/18 18:00 07/24/18 20:00 Temperature 98.7 F Pulse Rate 75 73 Respiratory Rate 17 Blood Pressure 138/75 Pulse Oximetry 93 L Intake & Output 07/24/18 07/24/18 07/25/18 06:59 18:59 06:59 Intake Total 820 / 820 1060 / 1060 Output Total 1005 / 1005 1215 / 1215 Balance -185 / -185 -155 / -155 Weight 89.4 kg 89.4 kg Intake: IV 100 / 100 100 / 100 Zosyn 3.375 GM Premix 50 ML @ 100 / 100 100 / 100 100 mls/hr IV.SIG Q8H [facility] Rx#: [id number] Oral 720 / 720 960 / 960 Output: Urine 1000 / 1000 1200 / 1200 Wound Drainage # 1 Right Abdomen ALBINA Drain Other: # Voids 3 Date of Last Bowel Movement 07/24/18 07/23/18 # Bowel Movements 1 Weight On Admission 89.4 kg Narrative: General patient says he feels much better today. HEENT extraocular movements are intact, clear oropharyngeal mucosa, NG tube in place. Cardiovascular S1-S2 Respiratory clear to auscultation bilaterally Abdomen soft, distended, hypoactive bowel sounds, bloody drainage from abdominal drain Extremities no edema 2+ distal pulses in bilateral upper and lower extremities Neuro patient moves all 4 extremities, sensation is intact bilaterally Results 07/23/18 05:54 07/23/18 05:54 Cardiac Enzymes 07/23/18 Range/Units 05:54 AST 72 H (15-37) U/L CBC 07/23/18 Range/Units 05:54 WBC 18.3 H (4.0-11.0) th/mm3 RBC 4.33 L (4.50-5.90) mil/mm3 Hgb 13.7 (13.0-17.0) gm/dL Hct 39.9 (39.0-51.0) % Plt Count 283 (150-450) th/mm3 Neut # (Auto) 13.5 H (1.8-7.7) th/mm3 Lymph # (Auto) 2.5 (1.0-4.8) th/mm3 [place] # (Auto) 1.9 H (0.0-0.9) th/mm3 Eos # (Auto) 0.3 (0.0-0.4) th/mm3 Baso # (Auto) 0.1 (0.0-0.2) th/mm3 Comprehensive Metabolic Panel 07/23/18 Range/Units 05:54 Sodium 142 (136-145) meq/L Potassium 4.1 (3.5-5.1) meq/L Chloride 111 H (98-107) meq/L Carbon Dioxide 24.7 (21.0-32.0) meq/L BUN 20 H (7-18) mg/dL Creatinine 0.58 L (0.60-1.30) mg/dL Calcium 8.5 (8.5-10.1) mg/dL AST 72 H (15-37) U/L ALT 90 H (12-78) U/L Alkaline Phosphatase 97 (45-117) U/L Total Protein 6.1 L (6.4-8.2) g/dL Albumin 2.1 L (3.4-5.0) g/dL Intake and Output 07/24/18 07/24/18 07/25/18 14:59 22:59 06:59 Intake Total 50 / 50 1010 / 1010 Output Total 1215 / 1215 Balance 50 / 50 -205 / -205 Intake: IV 50 / 50 50 / 50 Zosyn 3.375 GM Premix 50 ML @ 50 / 50 50 / 50 100 mls/hr IV.SIG Q8H [facility] Rx#: [id number] Oral 960 / 960 Output: Urine 1200 / 1200 Wound Drainage # 1 Right Abdomen ALBINA Drain Other: Date of Last Bowel Movement 07/23/18 07/23/18 Weight 89.4 kg Weight On Admission 89.4 kg Patient Weight 07/25/18 06:59 Weight 89.4 kg Assessment and Plan - Assessment (1) AVNRT (AV lalo re-entry tachycardia) Code(s): I47.1 - Supraventricular tachycardia Status: Acute (2) Tobacco abuse Code(s): Z72.0 - Tobacco use Status: Acute (3) Acute cholecystitis due to biliary calculus Code(s): K80.00 - Calculus of gallbladder with acute cholecystitis without obstruction Status: Acute - Plan 1) Acute cholecystitis s/p cholecystectomy 2) SVT/AVNRT s/p pharmacologic cardioversion with Adenosine Heart rates stable in sinus rhythm Con't metoprolol IV Diet will be advanced by surgery, if doing well tomorrow will transfer from IV to PO Metoprolol 3) Tobacco abuse Cessation 4) EF 55-60%
[2018-07-25] MEDS: Morphine Sulfate 15 MG SR Tablet PO SCH ×2 (01:29→13:46)
[2018-07-25] MEDS: Piperacil/Tazo 3.375 GM Premix 50 ML IV.SIG SCH (01:29)
[2018-07-25] MEDS: Morphine Inj 4 MG/ML Vial IV.PUSH PRN ×3 (03:34→11:31)
[2018-07-25] MEDS ORDERED: Metoprolol Tartrate 25 MG Tablet PO SCH (09:00)
[2018-07-25] MEDS ORDERED: Amoxicillin/Clavulanate 875/125 MG Tablet PO SCH (09:00)
[2018-07-25] MEDS: Gabapentin 300 MG Capsule PO SCH (09:10)
[2018-07-25] MEDS: Enoxaparin Inj 40 MG/0.4 ML Syringe SQ SCH (09:11)
--- NOTE | 2018-07-25 09:16 | P.DS ---
Date of admission: 07/19/18 17:16 Primary care physician: No Primary Care Physician Brief History from admission: Mr. Brown is a 62-year-old male. He says 2 nights ago (Thanksgiving dinner) he had an acute onset of right upper quadrant pain. At first the pain was mild in the background but today when he awoke the pain was acute and severe so he had a friend bring him to the emergency department. Imaging shows evidence of cholecystitis. With tachycardia and leukocytosis and cholecystitis the patient meets criteria for sepsis at time of admit. Additionally she has an ileus versus SBO based on imaging. The patient was subsequently admitted for cholecystitis and was also found to be in SVT during the hospitalization. DS: Medications - Discharge Medications Prescriptions: albuterol sulfate [Ventolin HFA] 1 puff INHALATION Q4-6H PRN #1 inhaler PRN Reason: Shortness Of Breath Or Wheezing amoxicillin-pot clavulanate 1 tab PO Q12HR 5 Days tab budesonide-formoterol [Symbicort] 2 puff INHALATION BID #1 inhaler metoprolol tartrate 25 mg PO BID #30 tab DS: Summary Hospital Course: This patient is a 62-year-old man with COPD, dyslipidemia. The patient lives in [facility] and has been visiting [place] over the past few weeks. The patient presented with findings consistent with acute cholecystitis. Patient was admitted for treatment and during the hospitalization was found to be in SVT which was treated with adenosine. 1. Sepsis secondary to acute cholecystitis. Patient febrile on admission, has not been febrile since then. WBC was elevated and has been downtrending. Patient is status post cholecystectomy. Postop day 4. Patient tolerated the procedure well. Surgery evaluated the patient and he is status post lap mara. The patient had a drain in place which will be removed by the surgical team prior to his discharge today. Patient was given a prescription for 5 more days of p.o. antibiotics. He is tolerating his diet well without any difficulties. The patient is having bowel movements and is now ambulating without any difficulties. Patient will be discharged home today. He states that he lives in [place] and will likely go back to [place] the next few weeks. He will follow- up with the primary care doctor there. 2. Ileus Patient had ileus during the hospitalization. He was kept n.p.o. and kept on IV fluids. Patient was monitored closely and his ileus subsequently resolved. Patient is now having bowel movements and tolerating a p.o. diet. 3. Acute hypoxic respiratory failure 4. Tobacco smoking, likely COPD During auscultation the patient was also requiring supplemental oxygen, and this could possibly have been to the fluid that the patient received during the hospitalization. She states that she did show bilateral pulmonary basilar congestion. The patient's IV fluids were subsequently stopped. And he was slowly weaned off of supplemental oxygen. He is now on room air and is able to ambulate without any difficulties or shortness of breath. The patient has extensive [id number] smoking history. I advised him to follow-up with his primary care doctor in [place] in the next few weeks. He should have outpatient pulmonary function testing done. He will be given a prescription for albuterol and Symbicort on discharge. 4. Dyslipidemia Continue statin. 5. SVT While in the hospital the patient had an episode of SVT. He was evaluated by cardiology and was given adenosine and the patient went back into normal sinus rhythm. His heart rate is now under control with p.o. metoprolol. The patient will be given a prescription of metoprolol and will be discharged home today. The patient was advised to seek medical attention if he begins to experience palpitations, chest pain, and/or dizziness. Scripts were given to the patient prior to discharge. - Time Spent with Patient Total time spent providing and/or coordinating discharge services: Greater than 30 minutes - Quality: VTE Deep Vein Thrombosis/Pulmonary Embolism Present on Admission: No Exam Vital signs: Vital Signs 07/24/18 10:00 07/24/18 11:00 07/24/18 12:00 Temperature 97.8 F Pulse Rate 69 81 79 Respiratory Rate 24 23 33 H Blood Pressure 130/75 151/86 H 141/79 H Pulse Oximetry 94 L 92 L 93 L 07/24/18 13:00 07/24/18 14:00 07/24/18 15:00 Temperature Pulse Rate 68 83 65 Respiratory Rate 20 26 H 19 Blood Pressure 127/69 157/74 H 123/73 Pulse Oximetry 90 L 92 L 92 L 07/24/18 16:00 07/24/18 17:00 07/24/18 18:00 Temperature 97.9 F Pulse Rate 64 72 75 Respiratory Rate 21 Blood Pressure 139/74 Pulse Oximetry 91 L 07/24/18 20:00 07/24/18 23:13 07/25/18 00:00 Temperature 98.7 F 99 F Pulse Rate 73 77 Respiratory Rate 17 17 16 Blood Pressure 138/75 135/72 Pulse Oximetry 93 L 93 L 07/25/18 01:59 07/25/18 03:36 07/25/18 08:00 Temperature 98.4 F Pulse Rate 76 Respiratory Rate 16 16 20 Blood Pressure 131/68 Pulse Oximetry 92 L Intake & Output 07/24/18 07/25/18 07/25/18 18:59 06:59 18:59 Intake Total 1060 / 1060 570 / 570 Output Total 1215 / 1215 2 / 2 Balance -155 / -155 568 / 568 Weight 85.4 kg Intake: IV 100 / 100 50 / 50 Zosyn 3.375 GM Premix 50 ML @ 100 / 100 50 / 50 100 mls/hr IV.SIG Q8H [facility] Rx#: [id number] Oral 960 / 960 520 / 520 Output: Urine 1200 / 1200 Wound Drainage # 1 Right Abdomen ALBINA Drain Other: # Voids 4 Date of Last Bowel Movement 07/23/18 # Bowel Movements 1 1 Weight On Admission 89.4 kg Narrative: General patient says he feels much better today. His abdominal pain has improved. HEENT extraocular movements are intact, clear oropharyngeal mucosa, NG tube in place. Cardiovascular S1-S2 Respiratory clear to auscultation bilaterally Abdomen soft, distended, hypoactive bowel sounds, minimal bloody drainage from abdominal drain Extremities no edema 2+ distal pulses in bilateral upper and lower extremities Neuro patient moves all 4 extremities, sensation is intact bilaterally Results Procedures completed during hospitalization: Lap cholecystectomy Completed studies during hospitalization: Pending at discharge 07/21/18 14:21 Surgical [PTH] Routine - Impressions ITS Impressions Abdomen/Pelvis CT 07/19/18 13:54 CONCLUSION: 1. Findings most consistent with cholelithiasis and acute cholecystitis. 2. 2.1 cm indeterminate density right adrenal mass. Adrenal mass protocol CT or MRI examination may be performed on an outpatient basis for further evaluation. 3. Moderate sigmoid diverticulosis without evidence for diverticulitis. 4. Marginal fluid filled loops of small bowel in the left upper abdomen which may reflect developing adynamic ileus. 5. Additional ancillary findings, as above. Abdomen X-Ray 07/22/18 00:00 CONCLUSION: NG tube in good position Chest X-Ray 07/22/18 00:00 CONCLUSION: Interval development of mild atelectatic changes in the lung bases with small bilateral effusions. Discharge Plan - Discharge Disposition Patient Disposition: W/Home Health Service - Discharge Condition Condition: Good - Discharge Order Discharge Orders: Discharge Order (Routine); Ordered 07/25/18 Ordered By: Vernon Crooks - Physicians Team Primary Care Provider: Primary Care KurtiYarely Attending Provider: Vernon Crooks Other Providers: Reji Castro MD ; Carson Bowman DO
[2018-07-25 11:21] LABS: Baso # (Auto) 0.1 th/mm3 (0.0-0.2); Baso % (Auto) 0.4 % (0.0-2.0); Eos # (Auto) 0.6 th/mm3 (0.0-0.4); Eos % (Auto) 4.1 % (0.0-4.0); Hematocrit 38.4 % (39.0-51.0); Hemoglobin 13.5 gm/dL (13.0-17.0); Lymph # (Auto) 1.8 th/mm3 (1.0-4.8); Lymph % (Auto) 13.6 % (9.0-44.0); Mean Corpuscular HGB Conc 35.2 % (32.0-36.0); Mean Corpuscular Hemoglobin 31.9 pg (27.0-34.0); Mean Corpuscular Volume 90.6 fL (80.0-100.0); Mean Platelet Volume 7.8 fL (7.0-11.0); Mono # (Auto) 1.2 th/mm3 (0.0-0.9); Mono % (Auto) 9.2 % (0.0-8.0); Neut # (Auto) 9.8 th/mm3 (1.8-7.7); Neut % (Auto) 72.7 % (16.0-70.0); Platelet Count 404 th/mm3 (150-450); Red Blood Count 4.24 mil/mm3 (4.50-5.90); Red Cell Distribution Width 12.9 % (11.6-17.2); White Blood Count 13.5 th/mm3 (4.0-11.0)
--- NOTE | 2018-07-25 11:39 | P.PN ---
Subjective Interval history: Feels better, minimal abdominal pain Tolerating diet and moved bowels. Physical Exam Vital signs: Vital Signs 07/24/18 12:00 07/24/18 13:00 07/24/18 14:00 Temperature 97.8 F Pulse Rate 79 68 83 Respiratory Rate 33 H 20 26 H Blood Pressure 141/79 H 127/69 157/74 H Pulse Oximetry 93 L 90 L 92 L 07/24/18 15:00 07/24/18 16:00 07/24/18 17:00 Temperature 97.9 F Pulse Rate 65 64 72 Respiratory Rate 19 21 Blood Pressure 123/73 139/74 Pulse Oximetry 92 L 91 L 07/24/18 18:00 07/24/18 20:00 07/24/18 23:13 Temperature 98.7 F Pulse Rate 75 73 Respiratory Rate 17 17 Blood Pressure 138/75 Pulse Oximetry 93 L 07/25/18 00:00 07/25/18 01:59 07/25/18 03:36 Temperature 99 F Pulse Rate 77 Respiratory Rate 16 16 16 Blood Pressure 135/72 Pulse Oximetry 93 L 07/25/18 07:37 07/25/18 08:00 Temperature 98.4 F Pulse Rate 76 Respiratory Rate 18 20 Blood Pressure 131/68 Pulse Oximetry 92 L Intake & Output 07/24/18 07/25/18 07/25/18 18:59 06:59 18:59 Intake Total 1060 / 1060 570 / 570 Output Total 1215 / 1215 2 / 2 Balance -155 / -155 568 / 568 Weight 85.4 kg Intake: IV 100 / 100 50 / 50 Zosyn 3.375 GM Premix 50 ML @ 100 / 100 50 / 50 100 mls/hr IV.SIG Q8H [facility] Rx#: [id number] Oral 960 / 960 520 / 520 Output: Urine 1200 / 1200 Wound Drainage 2 2 # 1 Right Abdomen ALBINA Drain 2 2 Other: # Voids 4 Date of Last Bowel Movement 07/23/18 07/25/18 # Bowel Movements 1 1 Weight On Admission 89.4 kg - Constitutional no acute distress - Routine Respiratory Exam Present: CTA bilaterally - Routine Cardiovascular Exam Present: RRR - Routine Abdominal Exam Present: soft, wound (tegaderm over umbilicus intact without erythema), drain ( removed today, minimal output) Results - Labs CBC & Chem 7: 07/25/18 09:52 07/23/18 05:54 Laboratory Results - last 24 hr 07/25/18 09:52 WBC 13.5 H RBC 4.24 L Hgb 13.5 Hct 38.4 L MCV 90.6 MCH 31.9 MCHC 35.2 RDW 12.9 Plt Count 404 D MPV 7.8 Prelim Diff (Auto) Slide review pending Neut % (Auto) 72.7 H Lymph % (Auto) 13.6 Titus % (Auto) 9.2 H Eos % (Auto) 4.1 H Baso % (Auto) 0.4 Neut # (Auto) 9.8 H Lymph # (Auto) 1.8 Titus # (Auto) 1.2 H Eos # (Auto) 0.6 H Baso # (Auto) 0.1 Differential Comment . - Procedures Lap cholecystectomy Assessment and Plan - Assessment (1) Acute cholecystitis due to biliary calculus Code(s): K80.00 - Calculus of gallbladder with acute cholecystitis without obstruction Status: Acute Plan: Improved; WBC's decreasing; likely elevated due to pulmonary issues. Tolerating diet; drain removed. Follow up my office one week - Plan Discussed Condition With: Patient Nurse Rito Crooks - Attending Attestation I attest that I had a [id number] encounter with the patient on the same day, and personally performed and documented my assessment and findings in the medical record. The following services were provided during this hospital visit: Chart data review, vital sign assessments/reviewing monitor data Review of consultation notes if present Medication orders/review and/or management Ordering and/or reviewing lab tests Ordering and/or interpreting/reviewing x-rays and/or diagnostic studies Care of the patient and discussion of the patient with the care team Documentation time To help prompt me to consider important information that might be impacting today's encounter and assessment, Information from prior notes written by myself or my colleagues may have been "brought forward/copy and pasted" into today's note.
[2018-07-25 12:07] LABS: Eosinophils 3 % (0-4); Lymphocytes 20 % (9-44); Monocytes 9 % (0-8); Myelocytes 1 % (0-0)
[2018-07-25 12:08] LABS: Platelet Estimate Normal (Normal); Platelet Morphology Normal (Normal); RBC Morphology Normal (Normal)
[2018-07-25 12:24] VITALS: BP 144/76; PULSE 75; RESP 17; TEMP 98.6; O2SAT 94
--- NOTE | 2018-07-25 12:46 | P.PNCA ---
Subjective Interval history: No events overnight Feels well Medications and Allergies Active Medications: Active Medications Acetaminophen (Tylenol) 650 mg PO Q4H PRN PRN Reason: Temp > 100.4 Al Hydroxide/Mg Hydroxide (Milk Of Darlyn Sutton) 30 ml PO Q12H PRN PRN Reason: Mild Constipation Amoxicillin/Clavulanate Potassium (Augmentin 875/125 Mg) 1 tab PO Q12HR [facility] Last Admin: 07/25/18 09:11 Dose: 1 tab Enalaprilat (Vasotec Inj) 2.5 mg IV.PUSH Q6H PRN PRN Reason: SBP>180, DBP>100, HR>65 Enoxaparin Sodium (Lovenox Inj) 40 mg SQ DAILY [facility] Last Admin: 07/25/18 09:11 Dose: 40 mg Gabapentin (Neurontin) 600 mg PO DAILY [facility] Last Admin: 07/25/18 09:10 Dose: 600 mg Metoprolol Tartrate (Lopressor) 25 mg PO BID [facility] Last Admin: 07/25/18 09:12 Dose: 25 mg Morphine Sulfate (Morphine Inj) 4 mg IV.PUSH Q4H PRN PRN Reason: Pain 3 to 6 Last Admin: 07/25/18 11:31 Dose: 4 mg Morphine Sulfate (Oramorph Sr) 15 mg PO Q12H [facility] Last Admin: 07/25/18 01:29 Dose: 15 mg Nicotine (Habitrol 21 Mg Patch.24 Hr) 1 patch T-DERMAL DAILY [facility] Last Admin: 07/25/18 09:12 Dose: 1 patch Ondansetron HCl (Zofran Inj) 4 mg IV.PUSH Q6H PRN PRN Reason: NAUSEA OR VOMITING Last Admin: 07/22/18 08:58 Dose: 4 mg Patch Removal (Remove Old Patch) 1 each T-DERMAL DAILY [facility] Last Admin: 07/25/18 09:14 Dose: 1 each Pravastatin Sodium (Pravachol) 20 mg PO HS [facility] Last Admin: 07/24/18 20:27 Dose: 20 mg Sodium Chloride (Ns Flush) 2 ml IV.FLUSH PRN PRN PRN Reason: FLUSH AFTER USING IV ACCESS Last Admin: 07/23/18 09:16 Dose: 2 ml Allergies Allergy/AdvReac Type Severity Reaction Status Date / Time No Known Allergies Allergy Verified 07/19/18 13:54 Home Medications Medication Instructions Recorded Confirmed Type gabapentin 600 mg PO DAILY 07/19/18 07/19/18 History morphine 15 mg PO Q12H 07/19/18 07/19/18 History oxycodone-acetaminophen 1 tab PO Q4-6H PRN 07/19/18 07/19/18 History pravastatin 20 mg PO DAILY 07/19/18 07/19/18 History Physical Exam Vital signs: Vital Signs 07/24/18 13:00 07/24/18 14:00 07/24/18 15:00 Temperature Pulse Rate 68 83 65 Respiratory Rate 20 26 H 19 Blood Pressure 127/69 157/74 H 123/73 Pulse Oximetry 90 L 92 L 92 L 07/24/18 16:00 07/24/18 17:00 07/24/18 18:00 Temperature 97.9 F Pulse Rate 64 72 75 Respiratory Rate 21 Blood Pressure 139/74 Pulse Oximetry 91 L 07/24/18 20:00 07/24/18 23:13 07/25/18 00:00 Temperature 98.7 F 99 F Pulse Rate 73 77 Respiratory Rate 17 17 16 Blood Pressure 138/75 135/72 Pulse Oximetry 93 L 93 L 07/25/18 01:59 07/25/18 03:36 07/25/18 07:37 Temperature Pulse Rate Respiratory Rate 16 16 18 Blood Pressure Pulse Oximetry 07/25/18 08:00 07/25/18 12:00 Temperature 98.4 F 98.6 F Pulse Rate 76 75 Respiratory Rate 20 17 Blood Pressure 131/68 144/76 H Pulse Oximetry 92 L 94 L Intake & Output 07/24/18 07/25/18 07/25/18 18:59 06:59 18:59 Intake Total 1060 / 1060 570 / 570 Output Total 1215 / 1215 2 / 2 Balance -155 / -155 568 / 568 Weight 85.4 kg Intake: IV 100 / 100 50 / 50 Zosyn 3.375 GM Premix 50 ML @ 100 / 100 50 / 50 100 mls/hr IV.SIG Q8H [facility] Rx#: [id number] Oral 960 / 960 520 / 520 Output: Urine 1200 / 1200 Wound Drainage 2 2 # 1 Right Abdomen ALBINA Drain 2 2 Other: # Voids 4 Date of Last Bowel Movement 07/23/18 07/25/18 # Bowel Movements 1 1 Weight On Admission 89.4 kg Narrative: GENERAL: NAD, AAOx3 SKIN: Warm and dry. HEAD: Atraumatic. Normocephalic. EYES: Pupils equal and round. No scleral icterus. No injection or drainage. ENT: No nasal bleeding or discharge. Mucous membranes pink and moist. NECK: Trachea midline. No JVD. CARDIOVASCULAR: Regular rate and rhythm. RESPIRATORY: No accessory muscle use. Clear to auscultation. Breath sounds equal bilaterally. GASTROINTESTINAL: Abdomen soft, non-tender, nondistended. Hepatic and splenic margins not palpable. MUSCULOSKELETAL: Extremities without clubbing, cyanosis, or edema. No obvious deformities. NEUROLOGICAL: Awake and alert. No obvious cranial nerve deficits. Motor grossly within normal limits. Five out of 5 muscle strength in the arms and legs. Normal speech. PSYCHIATRIC: Appropriate mood and affect; insight and judgment normal. Results 07/25/18 09:52 07/23/18 05:54 CBC 07/25/18 Range/Units 09:52 WBC 13.5 H (4.0-11.0) th/mm3 RBC 4.24 L (4.50-5.90) mil/mm3 Hgb 13.5 (13.0-17.0) gm/dL Hct 38.4 L (39.0-51.0) % Plt Count 404 D (150-450) th/mm3 Neut # (Auto) 9.8 H (1.8-7.7) th/mm3 Lymph # (Auto) 1.8 (1.0-4.8) th/mm3 Riley # (Auto) 1.2 H (0.0-0.9) th/mm3 Eos # (Auto) 0.6 H (0.0-0.4) th/mm3 Baso # (Auto) 0.1 (0.0-0.2) th/mm3 Intake and Output 07/24/18 07/25/18 07/25/18 22:59 06:59 14:59 Intake Total 1010 / 1010 570 / 570 Output Total 1215 / 1215 2 / 2 Balance -205 / -205 568 / 568 Intake: IV 50 / 50 50 / 50 Zosyn 3.375 GM Premix 50 ML @ 50 / 50 50 / 50 100 mls/hr IV.SIG Q8H [facility] Rx#: [id number] Oral 960 / 960 520 / 520 Output: Urine 1200 / 1200 Wound Drainage 2 # 1 Right Abdomen ALBINA Drain Other: # Voids 4 Date of Last Bowel Movement 07/23/18 07/25/18 # Bowel Movements 1 1 Weight 89.4 kg 85.4 kg Weight On Admission 89.4 kg Assessment and Plan - Assessment (1) AVNRT (AV lalo re-entry tachycardia) Code(s): I47.1 - Supraventricular tachycardia Status: Acute (2) Tobacco abuse Code(s): Z72.0 - Tobacco use Status: Acute (3) Acute cholecystitis due to biliary calculus Code(s): K80.00 - Calculus of gallbladder with acute cholecystitis without obstruction Status: Acute - Plan 1) Acute cholecystitis s/p cholecystectomy 2) SVT/AVNRT s/p pharmacologic cardioversion with Adenosine Heart rates stable in sinus rhythm Started on Metoprolol PO No further cardiovascular work up Can follow up in the office if further episodes for consideration of ablation 3) Tobacco abuse Cessation 4) EF 55-60%
== END 2018-07-25 14:53 | disposition home or self-care (01) ==
LOC: NEPD 12:58 → NEDA 17:16 → HCIS 19:00 → N03 07-21 14:54 → N07 07-24 21:22
PROVIDERS: ADMIT Hospitalist; ATTEND Hospitalist